=== PATIENT | male | born 1950 | race Caucasian/White ===

== ENCOUNTER 2019-01-09 08:32 | Day surgery (SDC) | payer OTHER, MEDICARE | END 2019-01-09 11:46 | disposition home or self-care (01) | LOC: JASU-ENDO 08:32 ==

== ENCOUNTER 2019-10-02 23:02 | Emergency (ER) | payer OTHER ==
[2019-10-02 23:37] VITALS: BMI 20.9
--- NOTE | 2019-10-02 23:45 | PDOC ---
Attending Attestation - Resident Resident Name: WilderShaun - ED Attending Attestation I have performed the following: I have examined & evaluated the patient, The case was reviewed & discussed with the resident, I agree w/resident's findings & plan - HPI HPI: 10/03/19 02:40 see resident hpi - Physicial Exam PE: 10/03/19 02:40 see resident exam - Critical Care Time Total Critical Care Time: 70 Critical Care Statement: The care of this patient involved high complexity decision making to prevent further life threatening deterioration of the patient 's condition and/or to evaluate & treat vital organ system(s) failure or risk of failure. 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
--- NOTE | 2019-10-02 23:48 | PDOC ---
History of Present Illness - General Chief Complaint: Respiratory Stated Complaint: WEAKNESS/CONGESTION Time Seen by Provider: 10/02/19 23:42 - History of Present Illness Initial Comments: 10/02/19 23:46 68 yo M with h/o HTN, HLD, CEA, carotid stent, CAD, CABG, PVD who p/w dry non productive cough x 2 days. Patient reports paroxysms of dry non productive cough x 2-3 days waking patient up from sleep. States that symptom not improved with OTC "Robitussin, and Diphehydramine" that patient took 10/01/19 evening. Reports waking up 10/02/19 AM with slow moving, narrow gait, resolved slowly through the day. Patient denies JEAN-BAPTISTE, vision change, palpitations, wheezing, orthopena, leg swelling/pain, N/V, F,C, CP, SOB, urinary complaints, hematuria, BPR, abdominal pain, diarrhea, constipation, lightheadedness, weakness, sensory changes. PMHx: as noted above ROS: as noted SHx: Denies Etoh, IVDA, tobacco use Allergies: NKDA Past History - Past Medical History Allergies/Adverse Reactions: Allergies Allergy/AdvReac Type Severity Reaction Status Date / Time No Known Drug Allergies AdvReac Verified 10/02/19 23:34 Home Medications: Ambulatory Orders Aspirin Coated [Ecotrin -] 81 mg PO DAILY 12/11/13 Enalapril Maleate [Vasotec -] 10 mg PO BID 12/11/13 Metoprolol Tartrate [Lopressor -] 25 mg PO BID 12/11/13 Sitagliptin Phos/Metformin HCl [Janumet Xr 50-1,000 mg Tablet] 1 each PO BID 12/11/13 Atorvastatin Ca [Lipitor] 40 mg PO HS 01/01/19 Glimepiride 4 mg PO BID 01/01/19 Anemia: Yes Cancer: No Cardiac Disorders: Yes (CAD, 1988;CABG 2 VESSELS 05/11/2013) CVA: No COPD: No Dementia: No Diabetes: Yes (NIDDM) HTN: Yes Hypercholesterolemia: Yes Seizures: No - Surgical History Cardiac Surgery: Yes (CABG) - Psycho Social/Smoking Cessation Hx Smoking History: Never smoked Have you smoked in the past 12 months: No If you are a former smoker, when did you quit?: 25 YEARS AGO Hx Alcohol Use: No Drug/Substance Use Hx: No Substance Use Type: None Hx Substance Use Treatment: No Review of Systems - Review of Systems Comments:: 10/02/19 23:47 GENERAL/CONSTITUTIONAL: No fever or chills. No weakness. HEAD, EYES, EARS, NOSE AND THROAT: No change in vision. No ear pain or discharge. No sore throat. CARDIOVASCULAR: No chest pain or shortness of breath RESPIRATORY: + cough. No wheezing, or hemoptysis. GASTROINTESTINAL: No nausea, vomiting, diarrhea or constipation. GENITOURINARY: No dysuria, frequency, or change in urination. MUSCULOSKELETAL: No joint or muscle swelling or pain. No neck or back pain. SKIN: No rash NEUROLOGIC: No headache, vertigo, loss of consciousness, or change in strength/sensation. ENDOCRINE: No increased thirst. No abnormal weight change HEMATOLOGIC/LYMPHATIC: No anemia, easy bleeding, or history of blood clots. ALLERGIC/IMMUNOLOGIC: No hives or skin allergy. *Physical Exam - Vital Signs Last Vital Signs Temp Pulse Resp BP Pulse Ox 99.3 F 88 19 120/61 97 10/02/19 23:05 10/02/19 23:05 10/02/19 23:05 10/02/19 23:05 10/02/19 23:05 - Physical Exam 10/02/19 23:47 GENERAL: Awake, alert, and fully oriented, in no acute distress HEAD: No signs of trauma, normocephalic, atraumatic EYES: PERRLA, EOMI, sclera anicteric, conjunctiva clear ENT: Auricles normal inspection, hearing grossly normal, nares patent, oropharynx clear without exudates. Moist mucosa NECK: Normal ROM, supple, no lymphadenopathy, JVD, or masses LUNGS: No distress, speaks full sentences, clear to auscultation bilaterally HEART: Regular rate and rhythm, normal S1 and S2, no murmurs, rubs or gallops, peripheral pulses normal and equal bilaterally. ABDOMEN: Soft, nontender, normoactive bowel sounds. No guarding, no rebound. No masses EXTREMITIES : Normal inspection, Normal range of motion, no edema. No clubbing or cyanosis NEUROLOGICAL: Cranial nerves II through XII grossly intact. Normal speech, normal gait, no focal sensorimotor deficits SKIN: Warm, Dry, normal turgor, no rashes or lesions noted ED Treatment Course - LABORATORY CBC & Chemistry Diagram: 10/03/19 00:12 10/03/19 00:12 Medical Decision Making - Medical Decision Making 10/03/19 00:11 68 yo M with h/o HTN, HLD, CEA, carotid stent, CAD, CABG, PVD who p/w dry non productive cough x 2 days. Cough wakes patient up from sleep. Vitals wnl, AF, A &Ox3. Physical exam unremarkable. Denies JEAN-BAPTISTE, vision change, palpitations, wheezing, orthopena, leg swelling/pain, N/V, F,C, CP, SOB, urinary complaints, hematuria, BPR, abdominal pain, diarrhea, constipation, lightheadedness, weakness, sensory changes. Will consider viral URI, PNA, asthma/COPD. Will reassess. ED Course: 10/03/19 00:15 EKG: STD V4-V5, TWI V4, NSR with absent DELPHINE, STD. Nml interval duration and axis. Nml R wave progression. Absent Q waves. Not seen on prior EKG 01-17-2015. 10/03/19 01:14 Laboratory Tests 10/03/19 10/03/19 10/03/19 00:12 00:12 00:12 WBC 6.3 Hgb 13.3 Hct 41.5 Plt Count 132 L Sodium 131 L Potassium 4.6 BUN 14.8 Creatinine 0.8 Troponin I 1.25 H* B-Natriuretic Peptide 1870.2 H 10/03/19 01:44 Repeat EKG unchanged from prior: STD V4-V5, TWI V4, NSR with absent DELPHINE, STD. Nml interval duration and axis. Nml R wave progression. Absent Q waves. Not seen on prior EKG 01-17-2015. 10/03/19 02:02 Repeat trop 1.31 10/03/19 02:06 Patient to be transferred d/t worsening PND, uptredning troponins, Lateral EKG changes. 10/03/19 02:[address] Kathie Thompson. Recommends Plavix, Heparin 5000, 80 mg Atorvastatin 80 PO, Lopressor 25 mg PO. Will be admit to ccu bed 8. Patient consents to tx. Discharge - Discharge Information Problems reviewed: Yes Clinical Impression/Diagnosis: Cough Condition: Stable Disposition: TRANSFER ACUTE CARE/OTHER HOSP - Admission No - Follow up/Referral Referrals: Juliana Sen MD [Primary Care Provider] - - Patient Discharge Instructions Patient Printed Discharge Instructions: DI for Cough -- Adult Additional Instructions: Please return to the emergency department with any new or worsening symptoms or concerns. Please follow up with your primary care physician within 72 hours. - Post Discharge Activity
[2019-10-03 00:41] LABS: BASO % 0.4 % (0-2.0); HEMATOCRIT 41.5 % (35.4-49); HEMOGLOBIN 13.3 GM/dL (11.7-16.9); LYMPH % 8.7 % (8-40); MCH 23.4 pg (25.7-33.7); MCHC 32.1 g/dl (32.0-35.9); MEAN CELL VOLUME 72.8 fl (80-96); MEAN PLT VOLUME 9.9 fl (7.5-11.1); MONO % 11.6 % (3.8-10.2); NEUT % 79.3 % (42.8-82.8); PLATELET COUNT 132 K/MM3 (134-434); RDW 15.2 % (11.9-15.9); WHITE BLOOD COUNT 6.3 K/mm3 (4.0-10.0)
[2019-10-03 01:06] LABS: ALBUMIN 3.8 g/dl (3.4-5.0); BILIRUBIN,TOTAL 0.3 mg/dL (0.2-1); BLOOD UREA NITROGEN 14.8 mg/dL (7-18); CALCIUM 9.2 mg/dL (8.5-10.1); CREATININE 0.8 mg/dL (0.55-1.3); POTASSIUM 4.6 mmol/L (3.5-5.1); TOT PROT 7.4 g/dl (6.4-8.2)
[2019-10-03 01:10] LABS: N-TERMINAL BNP 1870.2 pg/ml (5-125)
[2019-10-03] MEDS ORDERED: ATORVASTATIN CA 80 MG TABLET (FP) PO ONE (02:37)
[2019-10-03] MEDS ORDERED: METOPROLOL TARTRATE 25 MG TABLET (FP) PO ONE (02:37)
[2019-10-03] MEDS ORDERED: CLOPIDOGREL BISULFATE 300 MG TABLET ONE (02:38)
[2019-10-03] MEDS ORDERED: CLOPIDOGREL BISULFATE 300 MG TABLET PO ONE (02:38)
[2019-10-03] MEDS ORDERED: HEPARIN NA (PORCINE) 5,000 UNITS/ML 1ML VIAL IVPUSH PRN ×2 (02:38)
[2019-10-03] MEDS ORDERED: METOPROLOL TARTRATE 25 MG TABLET (FP) ONE (02:38)
[2019-10-03] MEDS ORDERED: HEPARIN INFUSION - 25,000 UNITS/500 ML INFUS.BAG IVPB ONE (02:39)
[2019-10-03] MEDS ORDERED: ATORVASTATIN CA 40 MG TABLET (FP) ONE (02:40)
[2019-10-03] MEDS ORDERED: HEPARIN NA (PORCINE) 5,000 UNITS/ML 1ML VIAL ONE (02:42)
[2019-10-03] MEDS ORDERED: HEPARIN - 25,000 UNIT in SODIUM CHLORIDE 495 ML IV SCH (02:45)
[2019-10-03 02:52] VITALS: PULSE 93
[2019-10-03 03:19] VITALS: BP 120/56; TEMP 98.4
[2019-10-03 04:10] LABS: INR 1.04 (0.83-1.09); PROTHROMBIN TIME (PATIENT) 12.3 SEC (9.7-13.0)
--- NOTE | 2019-10-03 08:42 | EKG ---
Test Reason : Blood Pressure : / mmHG Vent. Rate : 097 BPM Atrial Rate : 097 BPM P-R Int : 146 ms QRS Dur : 100 ms QT Int : 386 ms P-R-T Axes : 068 -29 091 degrees QTc Int : 490 ms POOR DATA QUALITY, INTERPRETATION MAY BE ADVERSELY AFFECTED NORMAL SINUS RHYTHM NONSPECIFIC ST AND T WAVE ABNORMALITY ABNORMAL ECG NO PREVIOUS ECGS AVAILABLE Confirmed by MD KATHRYN, JOSE R ([id number]) on 10/03/2019 8:42:37 AM Referred By: Confirmed By:JOSE R PERALTA MD
--- NOTE | 2019-10-03 08:43 | EKG ---
Test Reason : Blood Pressure : / mmHG Vent. Rate : 084 BPM Atrial Rate : 084 BPM P-R Int : 154 ms QRS Dur : 102 ms QT Int : 394 ms P-R-T Axes : 066 -18 101 degrees QTc Int : 465 ms NORMAL SINUS RHYTHM POSSIBLE LEFT ATRIAL ENLARGEMENT SEPTAL INFARCT , AGE UNDETERMINED ABNORMAL ECG NO PREVIOUS ECGS AVAILABLE Confirmed by MD KATHRYN, JOSE R ([id number] on 10/03/2019 8:42:51 AM Referred By: Confirmed By:JOSE R PERALTA MD
== END 2019-10-03 03:10 | disposition short-term general hospital (02) ==
LOC: JER 23:02
PROC: 3E033GC Introduction of Other Therapeutic Substance into Peripheral Vein, Percutaneous Approach (ICD-10-PCS; principal; 2019-10-02)
DX: R05 Cough (principal); R06.09 Other forms of dyspnea; R94.31 Abnormal electrocardiogram [ECG] [EKG]; R74.8 Abnormal levels of other serum enzymes; I10 Essential (primary) hypertension; I25.810 Atherosclerosis of coronary artery bypass graft(s) without angina pectoris; Z95.1 Presence of aortocoronary bypass graft; E11.9 Type 2 diabetes mellitus without complications; Z79.84 Long term (current) use of oral hypoglycemic drugs; I73.9 Peripheral vascular disease, unspecified; E78.00 Pure hypercholesterolemia, unspecified; Z95.828 Presence of other vascular implants and grafts; Z87.891 Personal history of nicotine dependence
CPT/HCPCS: 36415; 71045-TC-FY; 80053; 82550; 83880; 84484; 85025; 85610; 85730; 93005; 93010; 99291; J1644

== ENCOUNTER 2021-05-27 07:51 | Observation (INO) | payer OTHER ==
[2021-05-27 08:34] VITALS: BMI 24.0
[2021-05-27] MEDS ORDERED: ONDANSETRON 4 MG/2 ML VIAL IVPUSH ONE (09:19)
[2021-05-27 09:20] LABS: EOS % 3.1 % (0-4.5); HEMATOCRIT 33.2 % (35.4-49); HEMOGLOBIN 10.9 GM/dL (11.7-16.9); LYMPH % 18.5 % (8-40); MCH 23.3 pg (25.7-33.7); MCHC 32.8 g/dl (32.0-35.9); MEAN PLT VOLUME 9.3 fl (7.5-11.1); MONO % 7.5 % (3.8-10.2); NEUT % 69.9 % (42.8-82.8); PLATELET COUNT 109 10^3/uL (134-434); RBC 4.68 M/mm3 (4.00-5.60); RDW 15.9 % (11.9-15.9); WHITE BLOOD COUNT 4.7 K/mm3 (4.0-10.0)
[2021-05-27 09:26] LABS: INR 1.15 (0.83-1.09); PROTHROMBIN TIME (PATIENT) 12.9 SEC (9.7-13.0)
[2021-05-27 09:29] LABS: ACTIVATED PTT 30.8 SECONDS (25.2-36.5)
[2021-05-27] MEDS ORDERED: SODIUM CHLORIDE 0.9% 500 ML INFUS.BAG IV ONE (09:31)
[2021-05-27] MEDS ORDERED: ONDANSETRON 4 MG/2 ML VIAL ONE (09:32)
[2021-05-27 09:42] LABS: CHLORIDE 107 mmol/L (98-107); SODIUM 140 mmol/L (136-145)
[2021-05-27 09:44] LABS: CALCIUM 8.6 mg/dL (8.5-10.1)
[2021-05-27 09:45] LABS: ALBUMIN 3.2 g/dl (3.4-5.0); ANION GAP 8 MMOL/L (8-16); BLOOD UREA NITROGEN 11.6 mg/dL (7-18); CO2 24 mmol/L (21-32); GLUCOSE,RANDOM 96 mg/dL (74-106)
[2021-05-27 09:48] LABS: CREATININE 0.7 mg/dL (0.55-1.3); SGOT/AST 13 U/L (15-37); SGPT/ALT 10 U/L (13-61)
[2021-05-27 09:50] LABS: BILIRUBIN,TOTAL 0.4 mg/dL (0.2-1); TOT PROT 6.8 g/dl (6.4-8.2)
[2021-05-27 09:51] LABS: ALK PHOS 57 U/L (45-117)
[2021-05-27 11:16] LABS: LIPASE 121 U/L (73-393)
[2021-05-27] MEDS ORDERED: ASPIRIN COATED 81 MG TABLET.EC ONE (12:07)
[2021-05-27] MEDS ORDERED: metoPROLOL SUCCINATE 25 MG TAB.SR.24H (FP) PO ONE (13:05)
[2021-05-27] MEDS ORDERED: ENALAPRIL MALEATE 10 MG TABLET PO ONE (13:15)
[2021-05-27] MEDS: ASPIRIN COATED 81 MG TABLET.EC PO SCH (14:22)
[2021-05-27] MEDS: INSULIN SLIDING SCALE (NOVOLOG) 1 VIAL SQ SCH (16:35)
[2021-05-27] MEDS ORDERED: PT OWN MED DRAWER 7, Y5N ONE ×2 (16:37→19:09)
[2021-05-27] MEDS: GLIMEPIRIDE 4 MG TABLET PO SCH (18:04)
[2021-05-27] MEDS: ATORVASTATIN CA 40 MG TABLET (FP) PO SCH (21:30)
[2021-05-27] MEDS: HEPARIN NA (PORCINE) 5,000 UNITS/ML 1ML VIAL SQ SCH (21:30)
[2021-05-27] MEDS: ENALAPRIL MALEATE 10 MG TABLET PO SCH (21:30)
[2021-05-27] MEDS ORDERED: METOPROLOL TARTRATE 25 MG TABLET (FP) PO SCH (22:00)
[2021-05-28] MEDS: GLIMEPIRIDE 4 MG TABLET PO SCH ×2 (06:33→17:30)
[2021-05-28] MEDS: INSULIN SLIDING SCALE (NOVOLOG) 1 VIAL SQ SCH ×3 (06:34→17:37)
[2021-05-28] MEDS: ENALAPRIL MALEATE 10 MG TABLET PO SCH ×2 (09:25→21:17)
[2021-05-28] MEDS: METOPROLOL TARTRATE 25 MG TABLET (FP) PO SCH ×3 (09:27→21:16)
[2021-05-28] MEDS: ASPIRIN COATED 81 MG TABLET.EC PO SCH (09:27)
[2021-05-28] MEDS: HEPARIN NA (PORCINE) 5,000 UNITS/ML 1ML VIAL SQ SCH ×2 (09:28→21:16)
[2021-05-28] MEDS ORDERED: ASPIRIN COATED 81 MG TABLET.EC PO SCH (10:00)
[2021-05-28] MEDS ORDERED: INSULIN (NOVOLOG) ASPART 100 UNITS/ML 10ML VIAL ONE (11:42)
[2021-05-28] MEDS ORDERED: PT OWN MED DRAWER 7, Y5N ONE (16:50)
[2021-05-28] MEDS: ATORVASTATIN CA 40 MG TABLET (FP) PO SCH (21:16)
[2021-05-28 22:43] LABS: PH,URINE 7.5 (5.0-8.0); URINE APPEARANCE CLEAR; URINE BILIRUBIN NEGATIVE (NEGATIVE); URINE COLOR YELLOW; URINE GLUCOSE (UA) NEGATIVE (NEGATIVE); URINE KETONE NEGATIVE (NEGATIVE); URINE LEUK ESTERASE NEGATIVE (NEGATIVE); URINE NITRITE NEGATIVE (NEGATIVE); URINE PROTEIN NEGATIVE (NEGATIVE); URINE UROBILINOGEN 0.2 mg/dL (0.2-1.0)
[2021-05-29] MEDS ORDERED: PT OWN MED DRAWER 7, Y5N ONE ×2 (05:36→07:58)
[2021-05-29] MEDS: INSULIN SLIDING SCALE (NOVOLOG) 1 VIAL SQ SCH ×2 (06:40→12:38)
[2021-05-29 08:58] VITALS: BP 159/68; PULSE 76; TEMP 97.8
[2021-05-29] MEDS: GLIMEPIRIDE 4 MG TABLET PO SCH (09:03)
[2021-05-29] MEDS: METOPROLOL TARTRATE 25 MG TABLET (FP) PO SCH (09:48)
[2021-05-29] MEDS: ENALAPRIL MALEATE 10 MG TABLET PO SCH (09:48)
[2021-05-29] MEDS: ASPIRIN COATED 81 MG TABLET.EC PO SCH (09:48)
[2021-05-29] MEDS: HEPARIN NA (PORCINE) 5,000 UNITS/ML 1ML VIAL SQ SCH (09:48)
[2021-05-29] MEDS ORDERED: INSULIN (NOVOLOG) ASPART 100 UNITS/ML 10ML VIAL ONE (12:34)
== END 2021-05-29 18:08 | disposition home or self-care (01) ==
LOC: JER 07:51 → JERBED 09:55 → INTOOBSV 09:55 → J4W 13:09
PROVIDERS: ADMIT Internal Medicine; ATTEND Internal Medicine
PROC: 3E013VG Introduction of Insulin into Subcutaneous Tissue, Percutaneous Approach (ICD-10-PCS; principal; 2021-05-27)
PROC: 3E023GC Introduction of Other Therapeutic Substance into Muscle, Percutaneous Approach (ICD-10-PCS; 2021-05-27)
PROC: 3E033GC Introduction of Other Therapeutic Substance into Peripheral Vein, Percutaneous Approach (ICD-10-PCS; 2021-05-27)
PROC: 3E0337Z Introduction of Electrolytic and Water Balance Substance into Peripheral Vein, Percutaneous Approach (ICD-10-PCS; 2021-05-27)
DX: R42 Dizziness and giddiness (principal); G25.2 Other specified forms of tremor; I10 Essential (primary) hypertension; I24.9 Acute ischemic heart disease, unspecified; E78.5 Hyperlipidemia, unspecified; Z95.5 Presence of coronary angioplasty implant and graft; Z95.1 Presence of aortocoronary bypass graft; I73.9 Peripheral vascular disease, unspecified
CPT/HCPCS: 36415; 70450-TC; 70551-TC; 71045-TC-FY; 80053; 81003; 82550; 82962; 83036; 83690; 84484; 85025; 85610; 85730; 87086; 93005; 93010; 93306-TC; 93880-TC; 96372; 96374; 97116-GP; 97161-GP; 99285-25; C9803; G0378; J1644; U0003; U0005

== ENCOUNTER 2021-11-26 06:16 | Observation (INO) | payer OTHER ==
[2021-11-26 06:41] VITALS: BMI 23.6
[2021-11-26 08:45] LABS: INR 1.07 (0.83-1.09); PROTHROMBIN TIME (PATIENT) 12.3 SEC (9.7-13.0)
[2021-11-26 08:48] LABS: ACTIVATED PTT 32.9 SECONDS (25.2-36.5); BASO % 0.7 % (0-2.0); EOS % 1.7 % (0-4.5); HEMATOCRIT 35.3 % (35.4-49); HEMOGLOBIN 11.5 GM/dL (11.7-16.9); LYMPH % 19.7 % (8-40); MCH 23.2 pg (25.7-33.7); MCHC 32.6 g/dl (32.0-35.9); MEAN CELL VOLUME 71.1 fl (80-96); MEAN PLT VOLUME 9.3 fl (7.5-11.1); MONO % 9.8 % (3.8-10.2); NEUT % 68.1 % (42.8-82.8); PLATELET COUNT 148 10^3/uL (134-434); RBC 4.96 M/mm3 (4.00-5.60); RDW 14.4 % (11.9-15.9); WHITE BLOOD COUNT 6.1 K/mm3 (4.0-10.0)
[2021-11-26 08:57] LABS: ALBUMIN 3.7 g/dl (3.4-5.0); BLOOD UREA NITROGEN 17.4 mg/dL (7-18); MAGNESIUM 1.8 mg/dL (1.8-2.4)
[2021-11-26 09:00] LABS: CREATININE 0.7 mg/dL (0.55-1.3)
[2021-11-26 09:02] LABS: BILIRUBIN,TOTAL 0.3 mg/dL (0.2-1); TOT PROT 7.1 g/dl (6.4-8.2)
[2021-11-26 10:04] LABS: URINE APPEARANCE CLEAR; URINE BILIRUBIN NEGATIVE (NEGATIVE); URINE COLOR YELLOW; URINE GLUCOSE (UA) NEGATIVE (NEGATIVE); URINE KETONE NEGATIVE (NEGATIVE); URINE LEUK ESTERASE NEGATIVE (NEGATIVE); URINE NITRITE NEGATIVE (NEGATIVE); URINE PROTEIN NEGATIVE (NEGATIVE); URINE UROBILINOGEN 0.2 mg/dL (0.2-1.0)
[2021-11-26] MEDS ORDERED: INSULIN (NOVOLOG) ASPART 100 UNITS/ML 10ML VIAL SQ SCH (11:00)
[2021-11-26] MEDS: INSULIN (NOVOLOG) ASPART 100 UNITS/ML 10ML VIAL SQ SCH ×2 (13:00→17:59)
[2021-11-26] MEDS ORDERED: CARBIDOPA/LEVODOPA 25/100 TABLET (FP) ONE (15:08)
[2021-11-26] MEDS: CARBIDOPA/LEVODOPA 25/100 TABLET (FP) PO SCH ×2 (15:17→22:05)
[2021-11-26] MEDS ORDERED: GLIMEPIRIDE 4 MG TABLET PO SCH (16:30)
[2021-11-26] MEDS ORDERED: METOPROLOL TARTRATE 25 MG TABLET (FP) PO SCH (22:00)
[2021-11-26] MEDS: ATORVASTATIN CA 40 MG TABLET (FP) PO SCH (22:05)
[2021-11-26] MEDS: PRIMIDONE 50 MG TABLET PO SCH (22:05)
[2021-11-26] MEDS: ENALAPRIL MALEATE 10 MG TABLET PO SCH (22:05)
[2021-11-27] MEDS: CARBIDOPA/LEVODOPA 25/100 TABLET (FP) PO SCH ×3 (06:27→21:14)
[2021-11-27] MEDS: INSULIN (NOVOLOG) ASPART 100 UNITS/ML 10ML VIAL SQ SCH ×3 (06:50→17:10)
[2021-11-27 08:12] LABS: BASO % 0.5 % (0-2.0); EOS % 1.5 % (0-4.5); HEMATOCRIT 35.1 % (35.4-49); HEMOGLOBIN 11.1 GM/dL (11.7-16.9); LYMPH % 21.1 % (8-40); MCH 22.8 pg (25.7-33.7); MCHC 31.7 g/dl (32.0-35.9); MEAN CELL VOLUME 71.7 fl (80-96); MEAN PLT VOLUME 9.3 fl (7.5-11.1); MONO % 8.9 % (3.8-10.2); PLATELET COUNT 144 10^3/uL (134-434); RBC 4.89 M/mm3 (4.00-5.60); RDW 14.2 % (11.9-15.9); WHITE BLOOD COUNT 6.1 K/mm3 (4.0-10.0)
[2021-11-27 08:26] LABS: BLOOD UREA NITROGEN 18.7 mg/dL (7-18); CALCIUM 8.7 mg/dL (8.5-10.1)
[2021-11-27 08:27] LABS: ALBUMIN 3.4 g/dl (3.4-5.0)
[2021-11-27 08:29] LABS: CREATININE 0.8 mg/dL (0.55-1.3)
[2021-11-27 08:30] LABS: BILIRUBIN,TOTAL 0.4 mg/dL (0.2-1); TOT PROT 6.8 g/dl (6.4-8.2)
[2021-11-27] MEDS: EZETIMIBE 10 MG TABLET (FP) PO SCH (09:14)
[2021-11-27] MEDS: NIFEdipine E.R 60 MG TABLET PO SCH (09:14)
[2021-11-27] MEDS: NEBIVOLOL 10 MG TABLET (FP) PO SCH (09:14)
[2021-11-27] MEDS: CLOPIDOGREL BISULFATE 75 MG TABLET (FP) PO SCH (09:14)
[2021-11-27] MEDS: ENALAPRIL MALEATE 10 MG TABLET PO SCH ×2 (09:14→21:14)
[2021-11-27] MEDS: ASPIRIN COATED 81 MG TABLET.EC PO SCH (09:14)
[2021-11-27] MEDS: ATORVASTATIN CA 40 MG TABLET (FP) PO SCH (21:14)
[2021-11-27] MEDS: PRIMIDONE 50 MG TABLET PO SCH (21:14)
[2021-11-28] MEDS: INSULIN (NOVOLOG) ASPART 100 UNITS/ML 10ML VIAL SQ SCH ×2 (06:15→11:36)
[2021-11-28] MEDS: CARBIDOPA/LEVODOPA 25/100 TABLET (FP) PO SCH (06:15)
[2021-11-28] MEDS ORDERED: sitaGLIPtin PHOSPHATE 50 MG TABLET PO SCH (08:15)
[2021-11-28] MEDS: ASPIRIN COATED 81 MG TABLET.EC PO SCH (09:24)
[2021-11-28] MEDS: ENALAPRIL MALEATE 10 MG TABLET PO SCH (09:24)
[2021-11-28] MEDS: EZETIMIBE 10 MG TABLET (FP) PO SCH (09:24)
[2021-11-28] MEDS: NIFEdipine E.R 60 MG TABLET PO SCH (09:24)
[2021-11-28] MEDS: CLOPIDOGREL BISULFATE 75 MG TABLET (FP) PO SCH (09:25)
[2021-11-28] MEDS: NEBIVOLOL 10 MG TABLET (FP) PO SCH (09:25)
[2021-11-28 12:39] VITALS: BP 133/53; PULSE 71; TEMP 98.2
== END 2021-11-28 14:10 | disposition home or self-care (01) ==
LOC: JER 06:16 → JERBED 10:38 → J4W 16:09
PROVIDERS: ADMIT Internal Medicine; ATTEND Internal Medicine
PROC: 3E013VG Introduction of Insulin into Subcutaneous Tissue, Percutaneous Approach (ICD-10-PCS; principal; 2021-11-26)
DX: G20 Parkinson's disease (principal); I25.10 Atherosclerotic heart disease of native coronary artery without angina pectoris; I77.9 Disorder of arteries and arterioles, unspecified; Z95.1 Presence of aortocoronary bypass graft; R26.81 Unsteadiness on feet; R42 Dizziness and giddiness; E78.5 Hyperlipidemia, unspecified; I11.9 Hypertensive heart disease without heart failure; I73.9 Peripheral vascular disease, unspecified; I65.29 Occlusion and stenosis of unspecified carotid artery
CPT/HCPCS: 36415; 70450-TC; 70551-TC; 80053; 80061; 81003; 82962; 83036; 83735; 84439; 84443; 84484; 85025; 85610; 85730; 87086; 93005; 93010; 93306-TC; 93880-TC; 96372; 97116-GP; 97161-GP; 99285-25; C9803-CS; G0378; U0003; U0005

== ENCOUNTER 2022-01-07 21:52 | Inpatient (IN) | payer OTHER ==
[2022-01-07 22:14] VITALS: BMI 24.0
[2022-01-07 23:53] LABS: VENOUS BASE EXCESS -4.3 mmol/L (-2-2); VENOUS O2 SATURATION 67.1 % (70-80); VENOUS PCO2 40.9 mmHg (38-52); VENOUS PH 7.334 (7.310-7.410)
[2022-01-08] MEDS ORDERED: CEFTRIAXONE 1 GM in DEXTROSE 5%-WATER - 100 ML IVPB ONE (00:02)
[2022-01-08] MEDS ORDERED: AZITHROMYCIN IVPB 500 MG in DEXTROSE 5%-WATER - 250 ML IVPB ONE (00:02)
[2022-01-08 00:04] LABS: BASO % 0.7 % (0-2.0); EOS % 0.3 % (0-4.5); HEMATOCRIT 33.7 % (35.4-49); HEMOGLOBIN 10.7 GM/dL (11.7-16.9); MCH 22.4 pg (25.7-33.7); MCHC 31.9 g/dl (32.0-35.9); MEAN CELL VOLUME 70.1 fl (80-96); MEAN PLT VOLUME 10.1 fl (7.5-11.1); MONO % 4.7 % (3.8-10.2); NEUT % 89.3 % (42.8-82.8); PLATELET COUNT 180 10^3/uL (134-434); RBC 4.81 M/mm3 (4.00-5.60); RDW 15.7 % (11.9-15.9)
[2022-01-08] MEDS ORDERED: CEFTRIAXONE 1 GM/50 ML BAG ONE (00:07)
[2022-01-08 00:15] LABS: CHLORIDE 103 mmol/L (98-107); SODIUM 136 mmol/L (136-145)
[2022-01-08 00:18] LABS: ALBUMIN 3.6 g/dl (3.4-5.0); ANION GAP 9 MMOL/L (8-16); BLOOD UREA NITROGEN 19.5 mg/dL (7-18); CO2 24 mmol/L (21-32); GLUCOSE,RANDOM 251 mg/dL (74-106)
[2022-01-08 00:21] LABS: SGOT/AST 21 U/L (15-37); SGPT/ALT 10 U/L (13-61)
[2022-01-08 00:23] LABS: BILIRUBIN,TOTAL 0.3 mg/dL (0.2-1); TOT PROT 7.3 g/dl (6.4-8.2)
[2022-01-08 00:24] LABS: ALK PHOS 78 U/L (45-117)
[2022-01-08 00:30] LABS: INR 1.15 (0.83-1.09); PROTHROMBIN TIME (PATIENT) 13.3 SEC (9.7-13.0)
[2022-01-08] MEDS ORDERED: ASPIRIN 81 MG CHEWABLE TABLETS PO ONE (00:48)
[2022-01-08] MEDS ORDERED: ASPIRIN 81 MG CHEWABLE TABLETS ONE (01:07)
[2022-01-08] MEDS ORDERED: AZITHROMYCIN IVPB 500 MG/250 ML BAG IVPB ONE (01:17)
[2022-01-08 03:21] LABS: URINE APPEARANCE CLEAR; URINE BILIRUBIN NEGATIVE (NEGATIVE); URINE COLOR YELLOW; URINE GLUCOSE (UA) TRACE (NEGATIVE); URINE KETONE NEGATIVE (NEGATIVE); URINE LEUK ESTERASE NEGATIVE (NEGATIVE); URINE NITRITE NEGATIVE (NEGATIVE); URINE PROTEIN NEGATIVE (NEGATIVE); URINE UROBILINOGEN 0.2 mg/dL (0.2-1.0)
[2022-01-08] MEDS ORDERED: CARBIDOPA/LEVODOPA 25/100 TABLET (FP) PO SCH (07:15)
[2022-01-08 08:24] LABS: CALCIUM 8.7 mg/dL (8.5-10.1)
[2022-01-08 08:25] LABS: ALBUMIN 3.1 g/dl (3.4-5.0); BLOOD UREA NITROGEN 18.3 mg/dL (7-18); MAGNESIUM 1.8 mg/dL (1.8-2.4)
[2022-01-08 08:28] LABS: CREATININE 0.8 mg/dL (0.55-1.3)
[2022-01-08 08:29] LABS: TOT PROT 6.6 g/dl (6.4-8.2)
[2022-01-08 08:30] LABS: BILIRUBIN,TOTAL 0.3 mg/dL (0.2-1)
[2022-01-08 08:34] LABS: BASO % 0.3 % (0-2.0); EOS % 0.2 % (0-4.5); HEMATOCRIT 32.9 % (35.4-49); HEMOGLOBIN 10.4 GM/dL (11.7-16.9); LYMPH % 9.2 % (8-40); MCH 22.3 pg (25.7-33.7); MCHC 31.7 g/dl (32.0-35.9); MEAN CELL VOLUME 70.2 fl (80-96); MEAN PLT VOLUME 9.6 fl (7.5-11.1); MONO % 7.1 % (3.8-10.2); NEUT % 83.2 % (42.8-82.8); PLATELET COUNT 163 10^3/uL (134-434); RBC 4.69 M/mm3 (4.00-5.60); RDW 15.5 % (11.9-15.9); WHITE BLOOD COUNT 8.7 K/mm3 (4.0-10.0)
[2022-01-08] MEDS ORDERED: PIPERACILLIN/TAZOB 4.5 GM 4.5 GM/100 ML BAG IVPB ONE ×2 (09:10→14:51)
[2022-01-08] MEDS: PIPERACILLIN/TAZOB 4.5 GM 4.5 GM in DEXTROSE 5%-WATER 100 ML IVPB SCH ×2 (09:17→15:01)
[2022-01-08] MEDS ORDERED: VANCOMYCIN/WATER FOR INJ (PEG) 1,000 MG/200 ML BAG IVPB SCH (10:00)
[2022-01-08] MEDS ORDERED: NEBIVOLOL 10 MG TABLET (FP) PO SCH (10:30)
[2022-01-08] MEDS ORDERED: ENALAPRIL MALEATE 5 MG TABLET ONE (11:11)
[2022-01-08] MEDS ORDERED: NIFEdipine E.R 60 MG TABLET ONE (11:12)
[2022-01-08] MEDS ORDERED: CLOPIDOGREL BISULFATE 75 MG TABLET (FP) ONE (11:12)
[2022-01-08] MEDS ORDERED: ASPIRIN COATED 81 MG TABLET.EC ONE (11:12)
[2022-01-08] MEDS ORDERED: VANCOMYCIN 1 GRAM (PRE-DOCKED) 1,000 MG/250 ML BAG IVPB ONE (11:13)
[2022-01-08] MEDS: NEBIVOLOL 5 MG TABLET (FP) PO SCH (11:33)
[2022-01-08] MEDS: ASPIRIN COATED 81 MG TABLET.EC PO SCH (11:33)
[2022-01-08] MEDS: CLOPIDOGREL BISULFATE 75 MG TABLET (FP) PO SCH (11:34)
[2022-01-08] MEDS: NIFEdipine E.R 60 MG TABLET PO SCH (11:34)
[2022-01-08] MEDS: ENALAPRIL MALEATE 10 MG TABLET PO SCH ×2 (11:34→21:54)
[2022-01-08] MEDS ORDERED: CARBIDOPA/LEVODOPA 25/100 TABLET (FP) ONE (12:08)
[2022-01-08] MEDS: CARBIDOPA/LEVODOPA 25/100 TABLET (FP) PO SCH ×2 (12:11→17:01)
[2022-01-08] MEDS ORDERED: ALBUTEROL SO4 2.5/IPRATROPIUM 0.5 INH SOL 3 ML VIAL.NEB. NEB ONE (12:59)
[2022-01-08] MEDS ORDERED: ALBUTEROL SO4 2.5/IPRATROPIUM 0.5 INH SOL 3 ML VIAL.NEB. NEB PRN ×2 (13:05→13:34)
[2022-01-08] MEDS: INSULIN SLIDING SCALE (NOVOLOG) 1 VIAL SQ SCH ×3 (13:19→22:14)
[2022-01-08] MEDS ORDERED: HEPARIN NA (PORCINE) 5,000 UNITS/ML 1ML VIAL IVPUSH PRN ×2 (13:48)
[2022-01-08] MEDS ORDERED: HEPARIN INFUSION - 25,000 UNITS/500 ML INFUS.BAG IVPB ONE (14:18)
[2022-01-08] MEDS: HEPARIN - 25,000 UNIT in SODIUM CHLORIDE 495 ML IV SCH (15:28)
[2022-01-08] MEDS ORDERED: PIPERACILLIN/TAZOBACTAM 3.375 GM VIAL IVPB ONE (17:00)
[2022-01-08] MEDS ORDERED: DEXTROSE 5%-WATER - 50 ML IVPB ONE (17:00)
[2022-01-08] MEDS: PIPERACILLIN/TAZOB 3.375 GM 3.375 GM in DEXTROSE 5%-WATER - 50 ML IVPB SCH (17:39)
[2022-01-08] MEDS: PRIMIDONE 50 MG TABLET PO SCH (21:54)
[2022-01-08] MEDS: ATORVASTATIN CA 40 MG TABLET (FP) PO SCH (21:54)
[2022-01-09] MEDS ORDERED: PIPERACILLIN/TAZOBACTAM 3.375 GM VIAL IVPB ONE ×3 (00:59→16:40)
[2022-01-09] MEDS ORDERED: DEXTROSE 5%-WATER - 50 ML IVPB ONE ×3 (01:00→16:40)
[2022-01-09] MEDS: PIPERACILLIN/TAZOB 3.375 GM 3.375 GM in DEXTROSE 5%-WATER - 50 ML IVPB SCH ×3 (02:28→17:31)
[2022-01-09] MEDS: INSULIN SLIDING SCALE (NOVOLOG) 1 VIAL SQ SCH ×4 (06:00→22:24)
[2022-01-09] MEDS: CARBIDOPA/LEVODOPA 25/100 TABLET (FP) PO SCH ×3 (06:01→17:46)
[2022-01-09] MEDS ORDERED: PIPERACILLIN/TAZOB 4.5 GM 4.5 GM in DEXTROSE 5%-WATER 100 ML IVPB SCH (09:00)
[2022-01-09] MEDS: ENALAPRIL MALEATE 10 MG TABLET PO SCH ×2 (09:41→22:24)
[2022-01-09] MEDS: CLOPIDOGREL BISULFATE 75 MG TABLET (FP) PO SCH (09:41)
[2022-01-09] MEDS: NEBIVOLOL 5 MG TABLET (FP) PO SCH (09:41)
[2022-01-09] MEDS: NIFEdipine E.R 60 MG TABLET PO SCH (09:41)
[2022-01-09] MEDS: ASPIRIN COATED 81 MG TABLET.EC PO SCH (09:41)
[2022-01-09] MEDS ORDERED: VANCOMYCIN/WATER FOR INJ (PEG) 1,000 MG/200 ML BAG IVPB SCH ×2 (10:00)
[2022-01-09] MEDS: HEPARIN - 25,000 UNIT in SODIUM CHLORIDE 495 ML IV SCH (16:30)
[2022-01-09] MEDS: ATORVASTATIN CA 40 MG TABLET (FP) PO SCH (22:24)
[2022-01-09] MEDS: PRIMIDONE 50 MG TABLET PO SCH (22:33)
[2022-01-10] MEDS ORDERED: PIPERACILLIN/TAZOBACTAM 3.375 GM VIAL IVPB ONE ×3 (01:25→15:37)
[2022-01-10] MEDS ORDERED: DEXTROSE 5%-WATER - 50 ML IVPB ONE ×3 (01:26→15:38)
[2022-01-10] MEDS: PIPERACILLIN/TAZOB 3.375 GM 3.375 GM in DEXTROSE 5%-WATER - 50 ML IVPB SCH ×3 (02:31→17:06)
[2022-01-10] MEDS: CARBIDOPA/LEVODOPA 25/100 TABLET (FP) PO SCH ×3 (06:18→16:54)
[2022-01-10 06:21] LABS: EOS % 1.7 % (0-4.5); HEMATOCRIT 28.6 % (35.4-49); HEMOGLOBIN 9.3 GM/dL (11.7-16.9); LYMPH % 16.2 % (8-40); MCH 22.5 pg (25.7-33.7); MCHC 32.3 g/dl (32.0-35.9); MEAN CELL VOLUME 69.4 fl (80-96); MEAN PLT VOLUME 9.7 fl (7.5-11.1); MONO % 7.8 % (3.8-10.2); NEUT % 73.3 % (42.8-82.8); PLATELET COUNT 156 10^3/uL (134-434); RBC 4.12 M/mm3 (4.00-5.60); WHITE BLOOD COUNT 7.3 K/mm3 (4.0-10.0)
[2022-01-10] MEDS: INSULIN SLIDING SCALE (NOVOLOG) 1 VIAL SQ SCH ×4 (06:21→21:45)
[2022-01-10 08:08] LABS: ALBUMIN 2.7 g/dl (3.4-5.0); BILIRUBIN,TOTAL 0.4 mg/dL (0.2-1); BLOOD UREA NITROGEN 14.2 mg/dL (7-18); CALCIUM 8.3 mg/dL (8.5-10.1); CREATININE 0.7 mg/dL (0.55-1.3); TOT PROT 5.8 g/dl (6.4-8.2)
[2022-01-10] MEDS: ASPIRIN COATED 81 MG TABLET.EC PO SCH (09:02)
[2022-01-10] MEDS: NIFEdipine E.R 60 MG TABLET PO SCH (09:02)
[2022-01-10] MEDS: ENALAPRIL MALEATE 10 MG TABLET PO SCH ×2 (09:02→21:42)
[2022-01-10] MEDS: CLOPIDOGREL BISULFATE 75 MG TABLET (FP) PO SCH (09:02)
[2022-01-10] MEDS: NEBIVOLOL 5 MG TABLET (FP) PO SCH (09:06)
[2022-01-10] MEDS: sitaGLIPtin PHOSPHATE 50 MG TABLET PO SCH (16:54)
[2022-01-10] MEDS: ATORVASTATIN CA 40 MG TABLET (FP) PO SCH (21:42)
[2022-01-10] MEDS: PRIMIDONE 50 MG TABLET PO SCH (21:42)
[2022-01-10] MEDS ORDERED: PATIENT'S OWN MEDICATION (NON-FORMULARY) (Sitagliptin Phos/Metformin Hcl [Janumet Xr 50-1, PO SCH (22:00)
[2022-01-10] MEDS ORDERED: CALCIUM CARBONATE 650 MG TABLET PO ONE (23:00)
[2022-01-11] MEDS ORDERED: DEXTROSE 5%-WATER - 50 ML IVPB ONE ×3 (03:04→17:34)
[2022-01-11] MEDS ORDERED: PIPERACILLIN/TAZOBACTAM 3.375 GM VIAL IVPB ONE ×3 (03:04→17:34)
[2022-01-11] MEDS: PIPERACILLIN/TAZOB 3.375 GM 3.375 GM in DEXTROSE 5%-WATER - 50 ML IVPB SCH ×3 (03:13→17:36)
[2022-01-11] MEDS ORDERED: FUROSEMIDE 40 MG/4 ML INJECTABLE VIAL ONE (04:27)
[2022-01-11] MEDS ORDERED: FUROSEMIDE 40 MG/4 ML INJECTABLE VIAL IVPUSH ONE (04:36)
[2022-01-11] MEDS ORDERED: ALBUTEROL SO4 2.5/IPRATROPIUM 0.5 INH SOL 3 ML VIAL.NEB. NEB ONE (05:02)
[2022-01-11] MEDS: sitaGLIPtin PHOSPHATE 50 MG TABLET PO SCH (06:35)
[2022-01-11] MEDS: CARBIDOPA/LEVODOPA 25/100 TABLET (FP) PO SCH ×3 (06:43→17:37)
[2022-01-11] MEDS: INSULIN SLIDING SCALE (NOVOLOG) 1 VIAL SQ SCH ×4 (06:43→21:05)
[2022-01-11 07:09] LABS: ARTERIAL BLD GAS O2 SATURATION 93.9 % (95-98); ARTERIAL BLOOD GAS PO2 71.8 mmHg (80-100); ARTERIAL BLOOD GAS pH 7.354 (7.350-7.450)
[2022-01-11 07:11] LABS: ALLENS TEST POSITIVE
[2022-01-11] MEDS: ALBUTEROL SO4 2.5/IPRATROPIUM 0.5 INH SOL 3 ML VIAL.NEB. NEB SCH ×4 (07:23→20:38)
[2022-01-11 07:51] LABS: HEMATOCRIT 29.7 % (35.4-49); HEMOGLOBIN 9.4 GM/dL (11.7-16.9); MCHC 31.6 g/dl (32.0-35.9); MEAN CELL VOLUME 69.5 fl (80-96); MEAN PLT VOLUME 9.7 fl (7.5-11.1); PLATELET COUNT 177 10^3/uL (134-434); RBC 4.28 M/mm3 (4.00-5.60); RDW 15.5 % (11.9-15.9); WHITE BLOOD COUNT 12.6 K/mm3 (4.0-10.0)
[2022-01-11 08:03] LABS: CHLORIDE 100 mmol/L (98-107); SODIUM 135 mmol/L (136-145)
[2022-01-11 08:05] LABS: CALCIUM 8.7 mg/dL (8.5-10.1)
[2022-01-11 08:06] LABS: ALBUMIN 2.9 g/dl (3.4-5.0); ANION GAP 13 MMOL/L (8-16); BLOOD UREA NITROGEN 25.5 mg/dL (7-18); CO2 22 mmol/L (21-32); GLUCOSE,RANDOM 398 mg/dL (74-106)
[2022-01-11 08:08] LABS: SGPT/ALT 8 U/L (13-61)
[2022-01-11 08:09] LABS: CREATININE 1.2 mg/dL (0.55-1.3); SGOT/AST 48 U/L (15-37)
[2022-01-11 08:10] LABS: BILIRUBIN,TOTAL 0.5 mg/dL (0.2-1); TOT PROT 6.4 g/dl (6.4-8.2)
[2022-01-11 08:12] LABS: ALK PHOS 58 U/L (45-117)
[2022-01-11] MEDS ORDERED: INSULIN (LEVEMIR) 100 UNITS/ML UNITS SQ SCH ×2 (08:41→22:00)
[2022-01-11 09:03] LABS: IRON SERUM 19 ug/dL (50-175); TOTAL IRON BINDING CAPACITY 293 ug/dL (250-450)
[2022-01-11] MEDS ORDERED: POLYETHYLENE GLYCOL 3350 119 GM BTL PO SCH (10:00)
[2022-01-11] MEDS ORDERED: ENOXAPARIN NA (PORCINE) 40 MG/0.4 ML DISP.SYRIN SQ SCH (10:00)
[2022-01-11] MEDS: ASPIRIN COATED 81 MG TABLET.EC PO SCH (10:30)
[2022-01-11] MEDS: POLYETHYLENE GLYCOL (HEALTHYLAX) 3350 17 GM PACKET PO SCH (10:30)
[2022-01-11] MEDS: NIFEdipine E.R 60 MG TABLET PO SCH (10:30)
[2022-01-11] MEDS: CLOPIDOGREL BISULFATE 75 MG TABLET (FP) PO SCH (10:30)
[2022-01-11] MEDS: NEBIVOLOL 5 MG TABLET (FP) PO SCH (10:30)
[2022-01-11] MEDS: ENALAPRIL MALEATE 10 MG TABLET PO SCH ×2 (10:30→21:07)
[2022-01-11] MEDS: MUPIROCIN 2% TOPICAL OINTMENT FOR DECOLONIZATION NS SCH ×2 (10:35→21:07)
[2022-01-11] MEDS ORDERED: DOXYCYCLINE INJECTION 100 MG in DEXTROSE 5%-WATER 100 ML IVPB SCH (12:00)
[2022-01-11] MEDS ORDERED: DEXTROSE 5%-WATER 100 ML IVPB ONE ×2 (12:05→20:53)
[2022-01-11] MEDS ORDERED: DOXYCYCLINE HYCLATE 100 MG VIAL ONE ×2 (12:05→20:53)
[2022-01-11 12:25] LABS: ANISOCYTOSIS 3+; MACROCYTOSIS 0
[2022-01-11] MEDS ORDERED: HEPARIN NA (PORCINE) 5,000 UNITS/ML 1ML VIAL IVPUSH PRN (17:42)
[2022-01-11] MEDS ORDERED: HEPARIN NA (PORCINE) 5,000 UNITS/ML 1ML VIAL IVPUSH ONE (17:59)
[2022-01-11] MEDS: HEPARIN - 25,000 UNIT in SODIUM CHLORIDE 495 ML IV SCH (19:40)
[2022-01-11] MEDS: INSULIN (LEVEMIR) 100 UNITS/ML UNITS SQ SCH (21:06)
[2022-01-11] MEDS: DOXYCYCLINE INJECTION 100 MG in DEXTROSE 5%-WATER 100 ML IVPB SCH (21:07)
[2022-01-11] MEDS ORDERED: PRIMIDONE 50 MG TABLET PO SCH (22:00)
[2022-01-11] MEDS ORDERED: CHLORHEXIDINE GLUCONATE 4% CLEANSER FOR DECOLONIZATION TP SCH (22:00)
[2022-01-11] MEDS ORDERED: ATORVASTATIN CA 40 MG TABLET (FP) PO SCH (22:00)
[2022-01-12] MEDS: ALBUTEROL SO4 2.5/IPRATROPIUM 0.5 INH SOL 3 ML VIAL.NEB. NEB SCH ×5 (00:03→15:15)
[2022-01-12] MEDS ORDERED: PIPERACILLIN/TAZOBACTAM 3.375 GM VIAL IVPB ONE ×2 (01:26→09:42)
[2022-01-12] MEDS ORDERED: DEXTROSE 5%-WATER - 50 ML IVPB ONE ×2 (01:26→09:43)
[2022-01-12] MEDS: PIPERACILLIN/TAZOB 3.375 GM 3.375 GM in DEXTROSE 5%-WATER - 50 ML IVPB SCH ×2 (01:40→10:08)
[2022-01-12] MEDS: HEPARIN NA (PORCINE) 5,000 UNITS/ML 1ML VIAL IVPUSH PRN ×2 (02:19→14:01)
[2022-01-12] MEDS: CARBIDOPA/LEVODOPA 25/100 TABLET (FP) PO SCH ×2 (06:18→12:00)
[2022-01-12] MEDS: INSULIN SLIDING SCALE (NOVOLOG) 1 VIAL SQ SCH ×2 (06:19→12:02)
[2022-01-12] MEDS: INSULIN (LEVEMIR) 100 UNITS/ML UNITS SQ SCH (06:19)
[2022-01-12 07:21] LABS: HEMATOCRIT 30.2 % (35.4-49); HEMOGLOBIN 9.7 GM/dL (11.7-16.9); MEAN CELL VOLUME 68.8 fl (80-96); MEAN PLT VOLUME 9.4 fl (7.5-11.1); PLATELET COUNT 182 10^3/uL (134-434); RBC 4.39 M/mm3 (4.00-5.60); RDW 15.6 % (11.9-15.9); WHITE BLOOD COUNT 7.4 K/mm3 (4.0-10.0)
[2022-01-12 07:29] LABS: ALBUMIN 2.6 g/dl (3.4-5.0); BLOOD UREA NITROGEN 20.4 mg/dL (7-18); CALCIUM 8.5 mg/dL (8.5-10.1); MAGNESIUM 2.1 mg/dL (1.8-2.4)
[2022-01-12 07:32] LABS: CREATININE 0.8 mg/dL (0.55-1.3); PHOSPHOROUS 3.5 mg/dL (2.5-4.9)
[2022-01-12 07:34] LABS: BILIRUBIN,TOTAL 0.4 mg/dL (0.2-1); TOT PROT 6.3 g/dl (6.4-8.2)
[2022-01-12] MEDS ORDERED: DEXTROSE 5%-WATER 100 ML IVPB ONE (09:42)
[2022-01-12] MEDS ORDERED: DOXYCYCLINE HYCLATE 100 MG VIAL ONE (09:42)
[2022-01-12] MEDS: DOXYCYCLINE INJECTION 100 MG in DEXTROSE 5%-WATER 100 ML IVPB SCH (10:05)
[2022-01-12] MEDS: POLYETHYLENE GLYCOL (HEALTHYLAX) 3350 17 GM PACKET PO SCH (10:05)
[2022-01-12] MEDS: ASPIRIN COATED 81 MG TABLET.EC PO SCH (10:07)
[2022-01-12] MEDS: NIFEdipine E.R 60 MG TABLET PO SCH (10:08)
[2022-01-12] MEDS: CLOPIDOGREL BISULFATE 75 MG TABLET (FP) PO SCH (10:08)
[2022-01-12] MEDS: NEBIVOLOL 5 MG TABLET (FP) PO SCH (10:08)
[2022-01-12] MEDS: ENALAPRIL MALEATE 10 MG TABLET PO SCH (10:08)
[2022-01-12] MEDS: MUPIROCIN 2% TOPICAL OINTMENT FOR DECOLONIZATION NS SCH (10:08)
[2022-01-12 13:57] LABS: ACTIVATED PTT 43.1 SECONDS (25.2-36.5); INR 1.16 (0.83-1.09); PROTHROMBIN TIME (PATIENT) 13.4 SEC (9.7-13.0)
[2022-01-12 16:19] VITALS: TEMP 97.6
[2022-01-12 16:21] VITALS: BP 152/72; PULSE 81
[2022-01-12] MEDS: HEPARIN - 25,000 UNIT in SODIUM CHLORIDE 495 ML IV SCH (16:59)
== END 2022-01-12 18:10 | disposition short-term general hospital (02) | DRG 280 ==
LOC: JER 21:52 → JERBED 01-08 00:02 → J4W 01-08 16:49 → JICU 01-11 05:57
PROVIDERS: ADMIT Internal Medicine; ATTEND Internal Medicine
DX: I21.A1 Myocardial infarction type 2 (principal); J18.9 Pneumonia, unspecified organism; J96.01 Acute respiratory failure with hypoxia; N17.9 Acute kidney failure, unspecified; J90 Pleural effusion, not elsewhere classified; I25.10 Atherosclerotic heart disease of native coronary artery without angina pectoris; E78.5 Hyperlipidemia, unspecified; E11.51 Type 2 diabetes mellitus with diabetic peripheral angiopathy without gangrene; G20 Parkinson's disease; I11.0 Hypertensive heart disease with heart failure; I50.9 Heart failure, unspecified; R77.8 Other specified abnormalities of plasma proteins; I77.9 Disorder of arteries and arterioles, unspecified; I44.7 Left bundle-branch block, unspecified; Z95.5 Presence of coronary angioplasty implant and graft; Z95.1 Presence of aortocoronary bypass graft
CPT/HCPCS: 0241U-QW; 36415; 36600; 71045-TC-FY; 71250-TC; 76775-TC; 80053; 80061; 81003; 82550; 82728; 82803; 82962; 83036; 83540; 83550; 83605; 83735; 83880; 84100; 84443; 84484; 85025; 85027; 85610; 85730; 86850; 86900; 86901; 87040; 87899; 93005; 93010; 93306-TC; 94010; 94640; 94660; 97116-GP; 97162-GP; 99285-25; C9803-CS; J1644; U0003; U0005

== ENCOUNTER 2022-03-03 05:57 | Inpatient (IN) | payer OTHER ==
[2022-03-03 08:20] LABS: ALBUMIN 3.6 g/dl (3.4-5.0); BLOOD UREA NITROGEN 15.6 mg/dL (7-18); CALCIUM 9.3 mg/dL (8.5-10.1)
[2022-03-03 08:23] LABS: CREATININE 0.7 mg/dL (0.55-1.3)
[2022-03-03 08:25] LABS: BILIRUBIN,TOTAL 0.3 mg/dL (0.2-1); TOT PROT 7.2 g/dl (6.4-8.2)
[2022-03-03 08:28] LABS: N-TERMINAL BNP 4172.2 pg/ml (5-125)
[2022-03-03 08:33] LABS: BASO % 0.4 % (0-2.0); EOS % 0.8 % (0-4.5); HEMATOCRIT 30.8 % (35.4-49); HEMOGLOBIN 9.9 GM/dL (11.7-16.9); LYMPH % 15.6 % (8-40); MCH 21.9 pg (25.7-33.7); MEAN CELL VOLUME 68.6 fl (80-96); MEAN PLT VOLUME 9.1 fl (7.5-11.1); MONO % 5.8 % (3.8-10.2); NEUT % 77.4 % (42.8-82.8); PLATELET COUNT 154 10^3/uL (134-434); RBC 4.49 M/mm3 (4.00-5.60); RDW 18.2 % (11.9-15.9); WHITE BLOOD COUNT 8.3 K/mm3 (4.0-10.0)
[2022-03-03] MEDS ORDERED: PIPERACILLIN/TAZOB 4.5 GM 4.5 GM in DEXTROSE 5%-WATER 100 ML IVPB ONE (08:39)
[2022-03-03] MEDS ORDERED: VANCOMYCIN 1,500 MG in DEXTROSE 5%-WATER - 250 ML IVPB ONE (08:39)
[2022-03-03] MEDS ORDERED: PIPERACILLIN/TAZOB 4.5 GM 4.5 GM/100 ML BAG IVPB ONE (08:43)
[2022-03-03] MEDS ORDERED: VANCOMYCIN PREMIX 1.5 GM 1,500 MG/300 ML BAG IVPB ONE (08:46)
[2022-03-03] MEDS ORDERED: ENALAPRIL MALEATE 10 MG TABLET PO SCH ×2 (09:30→22:00)
[2022-03-03] MEDS ORDERED: ENALAPRIL MALEATE 5 MG TABLET ONE (09:48)
[2022-03-03] MEDS ORDERED: ASPIRIN 81 MG CHEWABLE TABLETS PO ONE (10:05)
[2022-03-03] MEDS ORDERED: METOPROLOL TARTRATE 25 MG TABLET (FP) PO ONE (10:05)
[2022-03-03] MEDS ORDERED: hydrALAZINE HCL 10 MG TABLET PO ONE (10:05)
[2022-03-03] MEDS ORDERED: CLOPIDOGREL BISULFATE 75 MG TABLET (FP) PO ONE (10:06)
[2022-03-03] MEDS ORDERED: hydrALAZINE HCL 10 MG TABLET ONE (10:11)
[2022-03-03] MEDS ORDERED: ASPIRIN 81 MG CHEWABLE TABLETS ONE (10:11)
[2022-03-03] MEDS ORDERED: CLOPIDOGREL BISULFATE 75 MG TABLET (FP) ONE (10:11)
[2022-03-03] MEDS ORDERED: METOPROLOL TARTRATE 25 MG TABLET (FP) ONE (10:11)
[2022-03-03 10:41] LABS: ANISOCYTOSIS 3+; MACROCYTOSIS 0
[2022-03-03] MEDS ORDERED: ALBUTEROL SO4 2.5/IPRATROPIUM 0.5 INH SOL 3 ML VIAL.NEB. NEB PRN (11:25)
[2022-03-03] MEDS ORDERED: CLOPIDOGREL BISULFATE 75 MG TABLET (FP) PO SCH (11:30)
[2022-03-03] MEDS ORDERED: CARBIDOPA/LEVODOPA 25/100 TABLET (FP) ONE (11:34)
[2022-03-03] MEDS: CARBIDOPA/LEVODOPA 25/100 TABLET (FP) PO SCH ×2 (11:35→17:29)
[2022-03-03] MEDS: EZETIMIBE 10 MG TABLET (FP) PO SCH (16:07)
[2022-03-03] MEDS: CEFEPIME 2 GM in DEXTROSE 5%-WATER 100 ML IVPB SCH (16:07)
[2022-03-03 16:20] VITALS: BMI 23.0
[2022-03-03] MEDS: sitaGLIPtin PHOSPHATE 50 MG TABLET PO SCH (17:29)
[2022-03-03] MEDS: metFORMIN HCL 500 MG TABLET (FP) PO SCH (17:29)
[2022-03-03] MEDS: hydrALAZINE HCL 10 MG TABLET PO SCH ×2 (17:30→21:50)
[2022-03-03] MEDS: INSULIN (NOVOLOG) ASPART 100 UNITS/ML 10ML VIAL SQ SCH (17:30)
[2022-03-03] MEDS: NIFEdipine E.R 60 MG TABLET PO SCH (21:50)
[2022-03-03] MEDS: ATORVASTATIN CA 40 MG TABLET (FP) PO SCH (21:50)
[2022-03-03] MEDS: DOXYCYCLINE INJECTION 100 MG in DEXTROSE 5%-WATER 100 ML IVPB SCH (21:50)
[2022-03-03] MEDS ORDERED: PATIENT'S OWN MEDICATION (NON-FORMULARY) (Sitagliptin Phos/Metformin Hcl [Janumet Xr 50-1, PO SCH (22:00)
[2022-03-04] MEDS: PRIMIDONE 50 MG TABLET PO SCH ×2 (00:26→22:36)
[2022-03-04] MEDS: ENALAPRIL MALEATE 10 MG TABLET PO SCH ×3 (00:26→22:35)
[2022-03-04] MEDS: CEFEPIME 2 GM in DEXTROSE 5%-WATER 100 ML IVPB SCH ×3 (00:27→17:07)
[2022-03-04] MEDS: metFORMIN HCL 500 MG TABLET (FP) PO SCH ×2 (06:52→17:07)
[2022-03-04] MEDS: sitaGLIPtin PHOSPHATE 50 MG TABLET PO SCH ×2 (06:53→17:07)
[2022-03-04] MEDS: INSULIN (NOVOLOG) ASPART 100 UNITS/ML 10ML VIAL SQ SCH ×2 (06:53→16:52)
[2022-03-04] MEDS: CARBIDOPA/LEVODOPA 25/100 TABLET (FP) PO SCH ×3 (06:53→17:07)
[2022-03-04] MEDS: hydrALAZINE HCL 10 MG TABLET PO SCH ×3 (06:53→22:36)
[2022-03-04] MEDS: DOXYCYCLINE INJECTION 100 MG in DEXTROSE 5%-WATER 100 ML IVPB SCH ×2 (09:15→22:35)
[2022-03-04] MEDS: EZETIMIBE 10 MG TABLET (FP) PO SCH (09:15)
[2022-03-04] MEDS: ASPIRIN COATED 81 MG TABLET.EC PO SCH (09:26)
[2022-03-04] MEDS: FUROSEMIDE 40 MG TABLET (FP) PO SCH (09:26)
[2022-03-04] MEDS ORDERED: NIFEdipine E.R 60 MG TABLET PO SCH (10:00)
[2022-03-04] MEDS ORDERED: NEBIVOLOL 5 MG TABLET (FP) PO SCH (10:00)
[2022-03-04] MEDS: ATORVASTATIN CA 40 MG TABLET (FP) PO SCH (22:37)
[2022-03-04] MEDS: NIFEdipine E.R 60 MG TABLET PO SCH (22:37)
[2022-03-04] MEDS ORDERED: guaiFENesin/D-M SUGAR-FREE/ACLHOL-FREE 5 ML UNIT DOSE PO PRN (22:50)
[2022-03-04] MEDS ORDERED: ACETAMINOPHEN 325 MG TABLET (FP) PO ONE (22:50)
[2022-03-05] MEDS: CEFEPIME 2 GM in DEXTROSE 5%-WATER 100 ML IVPB SCH ×2 (01:30→09:48)
[2022-03-05] MEDS: hydrALAZINE HCL 10 MG TABLET PO SCH ×3 (06:03→23:58)
[2022-03-05] MEDS: sitaGLIPtin PHOSPHATE 50 MG TABLET PO SCH ×2 (06:03→18:15)
[2022-03-05] MEDS: metFORMIN HCL 500 MG TABLET (FP) PO SCH ×2 (06:03→18:15)
[2022-03-05] MEDS: INSULIN (NOVOLOG) ASPART 100 UNITS/ML 10ML VIAL SQ SCH ×2 (06:44→18:15)
[2022-03-05] MEDS: CARBIDOPA/LEVODOPA 25/100 TABLET (FP) PO SCH ×3 (06:45→18:14)
[2022-03-05] MEDS ORDERED: ACETAMINOPHEN 325 MG TABLET (FP) PO PRN (08:15)
[2022-03-05] MEDS: EZETIMIBE 10 MG TABLET (FP) PO SCH (09:47)
[2022-03-05] MEDS: FUROSEMIDE 40 MG TABLET (FP) PO SCH (09:47)
[2022-03-05] MEDS: CLOPIDOGREL BISULFATE 75 MG TABLET (FP) PO SCH (09:47)
[2022-03-05] MEDS: DOXYCYCLINE INJECTION 100 MG in DEXTROSE 5%-WATER 100 ML IVPB SCH ×2 (09:48→23:53)
[2022-03-05] MEDS: ASPIRIN COATED 81 MG TABLET.EC PO SCH (09:48)
[2022-03-05] MEDS: ENALAPRIL MALEATE 10 MG TABLET PO SCH (09:50)
[2022-03-05 13:00] LABS: BASO % 0.3 % (0-2.0); HEMATOCRIT 27.5 % (35.4-49); LYMPH % 10.3 % (8-40); MCHC 32.6 g/dl (32.0-35.9); MEAN CELL VOLUME 67.6 fl (80-96); MONO % 7.4 % (3.8-10.2); PLATELET COUNT 146 10^3/uL (134-434); RBC 4.07 M/mm3 (4.00-5.60); RDW 17.6 % (11.9-15.9); WHITE BLOOD COUNT 10.1 K/mm3 (4.0-10.0)
[2022-03-05 13:20] LABS: CALCIUM 8.5 mg/dL (8.5-10.1)
[2022-03-05 13:21] LABS: ALBUMIN 2.9 g/dl (3.4-5.0); BLOOD UREA NITROGEN 27.1 mg/dL (7-18)
[2022-03-05 13:24] LABS: CREATININE 1.2 mg/dL (0.55-1.3)
[2022-03-05 13:25] LABS: TOT PROT 6.5 g/dl (6.4-8.2)
[2022-03-05 13:26] LABS: BILIRUBIN,TOTAL 0.5 mg/dL (0.2-1)
[2022-03-05] MEDS: PIPERACILLIN/TAZOB 4.5 GM 4.5 GM in DEXTROSE 5%-WATER 100 ML IVPB SCH (18:17)
[2022-03-05] MEDS: ATORVASTATIN CA 40 MG TABLET (FP) PO SCH (23:57)
[2022-03-05] MEDS: NIFEdipine E.R 60 MG TABLET PO SCH (23:57)
[2022-03-05] MEDS: PRIMIDONE 50 MG TABLET PO SCH (23:58)
[2022-03-06] MEDS: ENALAPRIL MALEATE 10 MG TABLET PO SCH ×3 (00:08→23:34)
[2022-03-06] MEDS: PIPERACILLIN/TAZOB 4.5 GM 4.5 GM in DEXTROSE 5%-WATER 100 ML IVPB SCH ×3 (02:26→17:11)
[2022-03-06] MEDS ORDERED: MAG HYDROX/AL HYDROX/SIMETH 30 ML UNIT-DOSE CUP PO PRN (03:25)
[2022-03-06] MEDS: metFORMIN HCL 500 MG TABLET (FP) PO SCH ×2 (06:52→17:11)
[2022-03-06] MEDS: hydrALAZINE HCL 10 MG TABLET PO SCH ×3 (06:52→23:08)
[2022-03-06] MEDS: sitaGLIPtin PHOSPHATE 50 MG TABLET PO SCH ×2 (06:53→17:11)
[2022-03-06] MEDS: CARBIDOPA/LEVODOPA 25/100 TABLET (FP) PO SCH ×3 (06:53→17:11)
[2022-03-06] MEDS: INSULIN (NOVOLOG) ASPART 100 UNITS/ML 10ML VIAL SQ SCH ×2 (06:54→17:10)
[2022-03-06] MEDS: ASPIRIN COATED 81 MG TABLET.EC PO SCH (10:25)
[2022-03-06] MEDS: DOXYCYCLINE INJECTION 100 MG in DEXTROSE 5%-WATER 100 ML IVPB SCH ×2 (10:25→23:36)
[2022-03-06] MEDS: EZETIMIBE 10 MG TABLET (FP) PO SCH (10:25)
[2022-03-06] MEDS: FUROSEMIDE 40 MG TABLET (FP) PO SCH (10:26)
[2022-03-06] MEDS: FAMOTIDINE 20 MG/50 ML IVPB 20 MG/50 ML MG IVPB SCH ×2 (14:57→23:09)
[2022-03-06] MEDS: PRIMIDONE 50 MG TABLET PO SCH (23:08)
[2022-03-06] MEDS: NIFEdipine E.R 60 MG TABLET PO SCH (23:08)
[2022-03-06] MEDS: ATORVASTATIN CA 40 MG TABLET (FP) PO SCH (23:08)
[2022-03-07] MEDS: PIPERACILLIN/TAZOB 4.5 GM 4.5 GM in DEXTROSE 5%-WATER 100 ML IVPB SCH ×3 (02:13→17:38)
[2022-03-07] MEDS: metFORMIN HCL 500 MG TABLET (FP) PO SCH ×2 (06:51→16:36)
[2022-03-07] MEDS: CARBIDOPA/LEVODOPA 25/100 TABLET (FP) PO SCH ×3 (06:51→16:36)
[2022-03-07] MEDS: hydrALAZINE HCL 10 MG TABLET PO SCH ×3 (06:51→21:27)
[2022-03-07] MEDS: sitaGLIPtin PHOSPHATE 50 MG TABLET PO SCH ×2 (06:51→16:36)
[2022-03-07] MEDS: INSULIN (NOVOLOG) ASPART 100 UNITS/ML 10ML VIAL SQ SCH ×2 (06:52→17:38)
[2022-03-07] MEDS: FAMOTIDINE 20 MG/50 ML IVPB 20 MG/50 ML MG IVPB SCH ×2 (10:00→21:26)
[2022-03-07] MEDS: CLOPIDOGREL BISULFATE 75 MG TABLET (FP) PO SCH (10:05)
[2022-03-07] MEDS: ASPIRIN COATED 81 MG TABLET.EC PO SCH (10:05)
[2022-03-07] MEDS: FUROSEMIDE 40 MG TABLET (FP) PO SCH ×2 (10:05→16:36)
[2022-03-07] MEDS: DOXYCYCLINE INJECTION 100 MG in DEXTROSE 5%-WATER 100 ML IVPB SCH ×2 (10:05→21:27)
[2022-03-07] MEDS: ENALAPRIL MALEATE 10 MG TABLET PO SCH ×2 (10:05→21:26)
[2022-03-07] MEDS: EZETIMIBE 10 MG TABLET (FP) PO SCH (10:05)
[2022-03-07 10:47] LABS: ARTERIAL BLD GAS O2 SATURATION 92.9 % (95-98); ARTERIAL BLOOD GAS BASE EXCESS -2.9 mmol/L (-2-2); ARTERIAL BLOOD GAS PO2 61.8 mmHg (80-100); ARTERIAL BLOOD GAS pH 7.443 (7.350-7.450)
[2022-03-07 10:48] LABS: ALLENS TEST POSITIVE; PT'S TEMP 98.6
[2022-03-07 11:37] LABS: BLOOD UREA NITROGEN 32.8 mg/dL (7-18)
[2022-03-07 11:40] LABS: CREATININE 1.1 mg/dL (0.55-1.3)
[2022-03-07] MEDS: FLUTICASONE PROP 0.05% 16 GM NASAL SPRAY NS SCH ×2 (16:37→17:42)
[2022-03-07] MEDS: NIFEdipine E.R 60 MG TABLET PO SCH (21:26)
[2022-03-07] MEDS: PRIMIDONE 50 MG TABLET PO SCH (21:27)
[2022-03-07] MEDS: ATORVASTATIN CA 40 MG TABLET (FP) PO SCH (21:27)
[2022-03-08] MEDS: PIPERACILLIN/TAZOB 4.5 GM 4.5 GM in DEXTROSE 5%-WATER 100 ML IVPB SCH ×3 (02:55→18:06)
[2022-03-08] MEDS: hydrALAZINE HCL 10 MG TABLET PO SCH ×3 (06:22→22:53)
[2022-03-08] MEDS: FUROSEMIDE 40 MG TABLET (FP) PO SCH ×2 (06:23→13:17)
[2022-03-08] MEDS: metFORMIN HCL 500 MG TABLET (FP) PO SCH ×2 (06:23→16:46)
[2022-03-08] MEDS: CARBIDOPA/LEVODOPA 25/100 TABLET (FP) PO SCH ×3 (06:23→16:46)
[2022-03-08] MEDS: sitaGLIPtin PHOSPHATE 50 MG TABLET PO SCH ×2 (06:26→16:46)
[2022-03-08] MEDS: INSULIN (NOVOLOG) ASPART 100 UNITS/ML 10ML VIAL SQ SCH ×2 (06:26→16:49)
[2022-03-08] MEDS: FLUTICASONE PROP 0.05% 16 GM NASAL SPRAY NS SCH (09:56)
[2022-03-08] MEDS: ASPIRIN COATED 81 MG TABLET.EC PO SCH (09:57)
[2022-03-08] MEDS: EZETIMIBE 10 MG TABLET (FP) PO SCH (09:57)
[2022-03-08] MEDS: ENALAPRIL MALEATE 10 MG TABLET PO SCH ×3 (09:57→22:54)
[2022-03-08] MEDS: FAMOTIDINE 20 MG/50 ML IVPB 20 MG/50 ML MG IVPB SCH ×2 (09:57→22:57)
[2022-03-08] MEDS: DOXYCYCLINE INJECTION 100 MG in DEXTROSE 5%-WATER 100 ML IVPB SCH ×2 (09:58→23:40)
[2022-03-08] MEDS: PRIMIDONE 50 MG TABLET PO SCH (22:51)
[2022-03-08] MEDS: ATORVASTATIN CA 40 MG TABLET (FP) PO SCH (22:55)
[2022-03-08] MEDS: NIFEdipine E.R 60 MG TABLET PO SCH (22:55)
[2022-03-09] MEDS: PIPERACILLIN/TAZOB 4.5 GM 4.5 GM in DEXTROSE 5%-WATER 100 ML IVPB SCH ×2 (03:22→10:34)
[2022-03-09] MEDS: hydrALAZINE HCL 10 MG TABLET PO SCH ×2 (06:10→14:08)
[2022-03-09] MEDS: FUROSEMIDE 40 MG TABLET (FP) PO SCH ×2 (06:10→14:08)
[2022-03-09] MEDS: INSULIN (NOVOLOG) ASPART 100 UNITS/ML 10ML VIAL SQ SCH (06:11)
[2022-03-09] MEDS: FLUTICASONE PROP 0.05% 16 GM NASAL SPRAY NS SCH (10:28)
[2022-03-09] MEDS: ASPIRIN COATED 81 MG TABLET.EC PO SCH (10:28)
[2022-03-09] MEDS: CLOPIDOGREL BISULFATE 75 MG TABLET (FP) PO SCH (10:29)
[2022-03-09] MEDS: FAMOTIDINE 20 MG/50 ML IVPB 20 MG/50 ML MG IVPB SCH (10:29)
[2022-03-09] MEDS: ENALAPRIL MALEATE 10 MG TABLET PO SCH (10:30)
[2022-03-09] MEDS: DOXYCYCLINE INJECTION 100 MG in DEXTROSE 5%-WATER 100 ML IVPB SCH (10:31)
[2022-03-09] MEDS: EZETIMIBE 10 MG TABLET (FP) PO SCH (10:33)
[2022-03-09] MEDS: CARBIDOPA/LEVODOPA 25/100 TABLET (FP) PO SCH ×2 (11:47→17:25)
[2022-03-09 15:42] VITALS: BP 173/59; PULSE 84; RESP 20; TEMP 98.7
[2022-03-09] MEDS: sitaGLIPtin PHOSPHATE 50 MG TABLET PO SCH (17:25)
[2022-03-09] MEDS: metFORMIN HCL 500 MG TABLET (FP) PO SCH (17:25)
== END 2022-03-09 18:00 | disposition home or self-care (01) | DRG 193 ==
LOC: JER 05:57 → JERBED 09:18 → J8W 11:53 → OBSVTOIN 14:29
PROVIDERS: ADMIT Internal Medicine; ATTEND Internal Medicine
DX: J18.9 Pneumonia, unspecified organism (principal); I50.33 Acute on chronic diastolic (congestive) heart failure; N17.9 Acute kidney failure, unspecified; J81.1 Chronic pulmonary edema; E87.1 Hypo-osmolality and hyponatremia; I11.0 Hypertensive heart disease with heart failure; G20 Parkinson's disease; I73.9 Peripheral vascular disease, unspecified; E11.9 Type 2 diabetes mellitus without complications; D64.9 Anemia, unspecified; I25.10 Atherosclerotic heart disease of native coronary artery without angina pectoris; E78.5 Hyperlipidemia, unspecified; Z95.1 Presence of aortocoronary bypass graft; Z98.61 Coronary angioplasty status; I27.20 Pulmonary hypertension, unspecified
CPT/HCPCS: 0241U-QW; 36415; 36600; 71045-TC-FY; 71250-TC; 80048; 80053; 82803; 82962; 83880; 84484; 85025; 87070; 87081; 87205; 87633; 87899; 94640; 94761; 99285-25; G0378

== ENCOUNTER 2022-05-16 09:01 | Observation (INO) | payer OTHER ==
[2022-05-16] MEDS ORDERED: ACETAMINOPHEN 1000 MG/100 ML BAG IVPB ONE (09:58)
[2022-05-16 10:38] LABS: URINE APPEARANCE CLEAR; URINE BILIRUBIN NEGATIVE (NEGATIVE); URINE COLOR YELLOW; URINE GLUCOSE (UA) NEGATIVE (NEGATIVE); URINE KETONE NEGATIVE (NEGATIVE); URINE LEUK ESTERASE NEGATIVE (NEGATIVE); URINE NITRITE NEGATIVE (NEGATIVE); URINE PROTEIN TRACE (NEGATIVE); URINE UROBILINOGEN 0.2 mg/dL (0.2-1.0)
[2022-05-16 10:39] LABS: BASO % 0.3 % (0-2.0); EOS % 0.1 % (0-4.5); HEMATOCRIT 30.3 % (35.4-49); HEMOGLOBIN 9.7 GM/dL (11.7-16.9); LYMPH % 6.1 % (8-40); MCH 21.1 pg (25.7-33.7); MCHC 31.9 g/dl (32.0-35.9); MEAN CELL VOLUME 66.2 fl (80-96); MONO % 5.9 % (3.8-10.2); NEUT % 87.6 % (42.8-82.8); PLATELET COUNT 172 10^3/uL (134-434); RBC 4.58 M/mm3 (4.00-5.60); RDW 16.9 % (11.9-15.9); WHITE BLOOD COUNT 10.7 K/mm3 (4.0-10.0)
[2022-05-16 11:00] LABS: CALCIUM 9.3 mg/dL (8.5-10.1)
[2022-05-16 11:01] LABS: ALBUMIN 3.4 g/dl (3.4-5.0); BLOOD UREA NITROGEN 11.2 mg/dL (7-18)
[2022-05-16 11:04] LABS: CREATININE 0.8 mg/dL (0.55-1.3)
[2022-05-16 11:05] LABS: BILIRUBIN,TOTAL 0.5 mg/dL (0.2-1)
[2022-05-16] MEDS ORDERED: ACETAMINOPHEN INJECTION 100 ML IVPB ONE (11:15)
[2022-05-16] MEDS ORDERED: ACETAMINOPHEN 325 MG TABLET (FP) PO PRN (13:31)
[2022-05-16] MEDS ORDERED: FUROSEMIDE 40 MG TABLET (FP) ONE (14:09)
[2022-05-16] MEDS: CARBIDOPA/LEVODOPA 25/100 TABLET (FP) PO SCH ×2 (14:14→21:54)
[2022-05-16] MEDS: FUROSEMIDE 40 MG TABLET (FP) PO SCH (14:14)
[2022-05-16] MEDS: hydrALAZINE HCL 10 MG TABLET PO SCH ×2 (14:14→21:54)
[2022-05-16] MEDS: INSULIN SLIDING SCALE (NOVOLOG) 1 VIAL SQ SCH ×2 (18:58→21:54)
[2022-05-16] MEDS ORDERED: ATORVASTATIN CA 40 MG TABLET (FP) ONE (21:34)
[2022-05-16] MEDS ORDERED: hydrALAZINE HCL 10 MG TABLET ONE (21:34)
[2022-05-16] MEDS ORDERED: CARBIDOPA/LEVODOPA 25/100 TABLET (FP) ONE (21:35)
[2022-05-16] MEDS ORDERED: PRIMIDONE 50 MG TABLET PO SCH (22:00)
[2022-05-16] MEDS ORDERED: ATORVASTATIN CA 40 MG TABLET (FP) PO SCH (22:00)
[2022-05-16] MEDS ORDERED: PATIENT'S OWN MEDICATION (NON-FORMULARY) (Sitagliptin Phos/Metformin Hcl [Janumet Xr 50-1, PO SCH (22:00)
[2022-05-16] MEDS ORDERED: INSULIN SLIDING SCALE (NOVOLOG) 1 VIAL SQ SCH (22:00)
[2022-05-17] MEDS ORDERED: FUROSEMIDE 40 MG TABLET (FP) ONE (04:49)
[2022-05-17] MEDS ORDERED: hydrALAZINE HCL 10 MG TABLET ONE (04:49)
[2022-05-17] MEDS ORDERED: CARBIDOPA/LEVODOPA 25/100 TABLET (FP) ONE (04:49)
[2022-05-17] MEDS: FUROSEMIDE 40 MG TABLET (FP) PO SCH (06:05)
[2022-05-17] MEDS: CARBIDOPA/LEVODOPA 25/100 TABLET (FP) PO SCH (06:05)
[2022-05-17 06:11] VITALS: TEMP 98.2
[2022-05-17] MEDS: hydrALAZINE HCL 10 MG TABLET PO SCH (06:48)
[2022-05-17] MEDS ORDERED: sitaGLIPtin PHOSPHATE 50 MG TABLET PO SCH (07:00)
[2022-05-17] MEDS ORDERED: metFORMIN HCL 500 MG TABLET (FP) ONE (07:28)
[2022-05-17] MEDS ORDERED: sitaGLIPtin PHOSPHATE 50 MG TABLET ONE (07:28)
[2022-05-17] MEDS: INSULIN SLIDING SCALE (NOVOLOG) 1 VIAL SQ SCH ×2 (07:44→11:55)
[2022-05-17 08:44] LABS: BASO % 0.7 % (0-2.0); HEMATOCRIT 27.2 % (35.4-49); HEMOGLOBIN 8.7 GM/dL (11.7-16.9); LYMPH % 15.8 % (8-40); MCH 21.1 pg (25.7-33.7); MEAN PLT VOLUME 9.9 fl (7.5-11.1); MONO % 6.2 % (3.8-10.2); NEUT % 76.3 % (42.8-82.8); PLATELET COUNT 157 10^3/uL (134-434); RBC 4.12 M/mm3 (4.00-5.60); RDW 17.3 % (11.9-15.9); WHITE BLOOD COUNT 6.8 K/mm3 (4.0-10.0)
[2022-05-17 08:56] VITALS: RESP 18
[2022-05-17] MEDS ORDERED: ASPIRIN COATED 81 MG TABLET.EC ONE (08:59)
[2022-05-17] MEDS ORDERED: CLOPIDOGREL BISULFATE 75 MG TABLET (FP) ONE (08:59)
[2022-05-17] MEDS ORDERED: NIFEdipine E.R 60 MG TABLET ONE (09:00)
[2022-05-17 09:13] LABS: CHLORIDE 99 mmol/L (98-107); SODIUM 138 mmol/L (136-145)
[2022-05-17 09:17] LABS: ALBUMIN 2.9 g/dl (3.4-5.0); ANION GAP 9 MMOL/L (8-16); CALCIUM 8.4 mg/dL (8.5-10.1); CO2 30 mmol/L (21-32); GLUCOSE,RANDOM 192 mg/dL (74-106)
[2022-05-17 09:20] LABS: CREATININE 0.7 mg/dL (0.55-1.3)
[2022-05-17 09:21] LABS: BILIRUBIN,TOTAL 0.6 mg/dL (0.2-1); SGOT/AST 13 U/L (15-37)
[2022-05-17 09:24] LABS: TOT PROT 6.3 g/dl (6.4-8.2)
[2022-05-17 09:25] LABS: ALK PHOS 50 U/L (45-117)
[2022-05-17] MEDS ORDERED: NIFEdipine E.R 60 MG TABLET PO SCH (10:00)
[2022-05-17] MEDS ORDERED: ASPIRIN COATED 81 MG TABLET.EC PO SCH (10:00)
[2022-05-17] MEDS ORDERED: CLOPIDOGREL BISULFATE 75 MG TABLET (FP) PO SCH (10:00)
[2022-05-17 10:22] LABS: SGPT/ALT < 6 U/L (13-61)
[2022-05-17 12:18] VITALS: BP 139/57; PULSE 87; BMI 22.0
== END 2022-05-17 13:00 | disposition home or self-care (01) ==
LOC: JER 09:01 → JERBED 11:24 → UNDOADMOB 11:24 → INTOOBSV 11:24 → JERBED 13:31 → J8W 05-17 09:59
PROVIDERS: ADMIT Internal Medicine; ATTEND Internal Medicine
PROC: 3E033NZ Introduction of Analgesics, Hypnotics, Sedatives into Peripheral Vein, Percutaneous Approach (ICD-10-PCS; principal; 2022-05-16)
PROC: 3E013VG Introduction of Insulin into Subcutaneous Tissue, Percutaneous Approach (ICD-10-PCS; 2022-05-16)
DX: I25.10 Atherosclerotic heart disease of native coronary artery without angina pectoris (principal); I11.9 Hypertensive heart disease without heart failure; R77.8 Other specified abnormalities of plasma proteins; G20 Parkinson's disease; R09.02 Hypoxemia; E11.9 Type 2 diabetes mellitus without complications; E78.5 Hyperlipidemia, unspecified; I65.29 Occlusion and stenosis of unspecified carotid artery; Z95.1 Presence of aortocoronary bypass graft; Z95.5 Presence of coronary angioplasty implant and graft; Z87.891 Personal history of nicotine dependence
CPT/HCPCS: 0241U-QW; 36415; 71046-TC-FY; 80053; 81003; 82962; 84484; 85025; 87040; 87086; 93005; 93010; 96372; 96374; 99291; G0378

== ENCOUNTER 2023-04-08 12:54 | Emergency (ER) | payer MEDICARE, OTHER ==
[2023-04-08 13:01] VITALS: BP 132/66; PULSE 72; RESP 20; TEMP 100.4; BMI 22.3
== END 2023-04-08 14:15 | disposition left against medical advice (07) ==
LOC: JER 12:54
DX: R05.9 Cough, unspecified (principal); R06.02 Shortness of breath; Z53.21 Procedure and treatment not carried out due to patient leaving prior to being seen by health care provider
CPT/HCPCS: 99282-25

== ENCOUNTER 2023-04-08 19:18 | Emergency (ER) | payer MEDICARE ==
[2023-04-08 19:25] VITALS: BP 164/60; PULSE 72; RESP 18; TEMP 98.9; BMI 22.3
== END 2023-04-08 21:11 | disposition home or self-care (01) ==
LOC: JER 19:18
DX: R05.9 Cough, unspecified (principal); R50.9 Fever, unspecified; Z20.822 Contact with and (suspected) exposure to COVID-19
CPT/HCPCS: 0241U-QW; 71046-TC-FY; 99284-25

== ENCOUNTER 2024-03-04 20:19 | Inpatient (IN) | payer MEDICARE, OTHER ==
[2024-03-04 21:22] LABS: BASO % 0.6 % (0-2.0); HEMATOCRIT 30.1 % (35.4-49); HEMOGLOBIN 9.8 GM/dL (11.7-16.9); LYMPH % 18.1 % (8-40); MCH 20.3 pg (25.7-33.7); MCHC 32.4 g/dl (32.0-35.9); MEAN CELL VOLUME 62.5 fl (80-96); MEAN PLT VOLUME 9.2 fl (7.5-11.1); MONO % 9.6 % (3.8-10.2); NEUT % 71.7 % (42.8-82.8); PLATELET COUNT 137 10^3/uL (134-434); RBC 4.82 M/mm3 (4.00-5.60); RDW 20.6 % (11.9-15.9); WHITE BLOOD COUNT 8.5 K/mm3 (4.0-10.0)
[2024-03-04 21:26] LABS: INR 1.19 (0.83-1.09); PROTHROMBIN TIME (PATIENT) 13.4 SEC (9.7-13.0)
[2024-03-04 21:29] LABS: ACTIVATED PTT 33.3 SECONDS (25.2-36.5)
[2024-03-04 21:41] LABS: POTASSIUM 3.9 mmol/L (3.5-5.1)
[2024-03-04 21:43] LABS: CALCIUM 8.8 mg/dL (8.5-10.1)
[2024-03-04 21:44] LABS: ALBUMIN 3.3 g/dl (3.4-5.0); BLOOD UREA NITROGEN 17.6 mg/dL (7-18); MAGNESIUM 1.6 mg/dL (1.8-2.4)
[2024-03-04 21:47] LABS: CREATININE 0.9 mg/dL (0.55-1.3); PHOSPHOROUS 2.6 mg/dL (2.5-4.9)
[2024-03-04 21:48] LABS: BILIRUBIN,TOTAL 0.3 mg/dL (0.2-1); TOT PROT 6.8 g/dl (6.4-8.2)
[2024-03-04 21:49] LABS: N-TERMINAL BNP 4052.1 pg/ml (5-125)
[2024-03-04 21:57] LABS: PH,URINE 5.5 (5.0-8.0); URINE APPEARANCE CLEAR; URINE BILIRUBIN NEGATIVE (NEGATIVE); URINE COLOR YELLOW; URINE GLUCOSE (UA) NEGATIVE (NEGATIVE); URINE KETONE NEGATIVE (NEGATIVE); URINE LEUK ESTERASE NEGATIVE (NEGATIVE); URINE NITRITE NEGATIVE (NEGATIVE); URINE PROTEIN 2+ (NEGATIVE); URINE UROBILINOGEN 0.2 mg/dL (0.2-1.0)
[2024-03-04 22:21] LABS: EPI CELLS 5.1 /uL (0-25.1); HYALINE CASTS 0 /uL (0-3.1); URINE RBC 3.9 /uL (0-23.9); URINE WBC 4.5 /uL (0-25.8)
[2024-03-04 22:22] LABS: URINE BACTERIA 0.9 /uL (0-1359)
[2024-03-04] MEDS ORDERED: MAGNESIUM SULFATE IN WATER 2 GM/50 ML IVPB IVPB ONE (22:27)
[2024-03-04 22:31] LABS: ANISOCYTOSIS 2+; MACROCYTOSIS 0
[2024-03-04] MEDS: MAGNESIUM SULFATE IN WATER 2 GM/50 ML IVPB IVPB ONE (23:55)
[2024-03-05] MEDS ORDERED: hydrALAZINE HCL 10 MG TABLET ONE (04:35)
[2024-03-05] MEDS: hydrALAZINE HCL 10 MG TABLET PO ONE (04:55)
[2024-03-05] MEDS: hydrALAZINE HCL 10 MG TABLET PO SCH (06:11)
[2024-03-05] MEDS ORDERED: FUROSEMIDE 40 MG TABLET (FP) ONE (06:13)
[2024-03-05] MEDS: FUROSEMIDE 40 MG TABLET (FP) PO SCH (06:17)
[2024-03-05 07:44] LABS: BASO % 0.4 % (0-2.0); HEMATOCRIT 32.5 % (35.4-49); HEMOGLOBIN 10.4 GM/dL (11.7-16.9); LYMPH % 13.2 % (8-40); MCH 20.2 pg (25.7-33.7); MEAN CELL VOLUME 63.2 fl (80-96); MEAN PLT VOLUME 8.4 fl (7.5-11.1); MONO % 6.4 % (3.8-10.2); PLATELET COUNT 161 10^3/uL (134-434); RBC 5.14 M/mm3 (4.00-5.60); RDW 20.9 % (11.9-15.9); WHITE BLOOD COUNT 9.5 K/mm3 (4.0-10.0)
[2024-03-05 07:52] LABS: POTASSIUM 4.3 mmol/L (3.5-5.1)
[2024-03-05 07:54] LABS: ALBUMIN 3.4 g/dl (3.4-5.0); CALCIUM 8.7 mg/dL (8.5-10.1)
[2024-03-05 07:55] LABS: BLOOD UREA NITROGEN 12.8 mg/dL (7-18); MAGNESIUM 2.2 mg/dL (1.8-2.4)
[2024-03-05 07:58] LABS: CREATININE 0.8 mg/dL (0.55-1.3); PHOSPHOROUS 2.5 mg/dL (2.5-4.9)
[2024-03-05 07:59] LABS: BILIRUBIN,TOTAL 0.3 mg/dL (0.2-1)
[2024-03-05] MEDS: INSULIN ASPART SLIDING SCALE (NOVOLOG) 1 VIAL SQ SCH (08:55)
[2024-03-05] MEDS: ASPIRIN COATED 81 MG TABLET.EC PO SCH (09:18)
[2024-03-05] MEDS: NIFEdipine E.R 60 MG TABLET PO SCH (09:18)
[2024-03-05] MEDS: RIVAROXABAN 2.5 MG TABLET PO SCH (09:18)
[2024-03-05] MEDS ORDERED: ACETAMINOPHEN INJECTION 100 ML IVPB ONE ×2 (17:39→23:00)
[2024-03-05] MEDS: ACETAMINOPHEN 1000 MG/100 ML BAG IVPB PRN (17:51)
[2024-03-05] MEDS ORDERED: hydrALAZINE HCL 25 MG TABLET (FP) ONE ×2 (17:57→23:05)
[2024-03-05] MEDS ORDERED: PIPERACILLIN/TAZOB 3.375 GM 3.375 GM/50 ML BAG IVPB ONE (17:59)
[2024-03-05] MEDS: hydrALAZINE HCL 25 MG TABLET (FP) PO SCH (18:08)
[2024-03-05] MEDS: PIPERACILLIN/TAZOB 3.375 GM 3.375 GM in DEXTROSE 5%-WATER - 50 ML IVPB SCH (18:15)
[2024-03-05] MEDS ORDERED: IBUPROFEN 600 MG TABLET (FP) PO ONE (22:29)
[2024-03-05] MEDS ORDERED: ROSUVASTATIN CA 20 MG TABLET ONE (23:06)
[2024-03-05] MEDS: ROSUVASTATIN CA 40 MG TABLET PO SCH (23:15)
[2024-03-06] MEDS: PRIMIDONE 50 MG TABLET PO SCH (01:03)
[2024-03-06] MEDS: IBUPROFEN 600 MG TABLET (FP) PO ONE ×2 (01:03→16:43)
[2024-03-06] MEDS: SODIUM CHLORIDE 0.45% 1,000 ML IV SCH (16:43)
[2024-03-06] MEDS: AZITHROMYCIN IVPB 500 MG/250 ML BAG IVPB ONE (16:44)
[2024-03-06] MEDS: AZITHROMYCIN IVPB 500 MG/250 ML BAG IVPB SCH (16:44)
[2024-03-06] MEDS: VANCOMYCIN/WATER FOR INJ (PEG) 1,000 MG/200 ML BAG IVPB ONE (16:44)
[2024-03-06] MEDS: PIPERACILLIN/TAZOB 3.375 GM 3.375 GM in DEXTROSE 5%-WATER - 50 ML IVPB SCH (18:12)
[2024-03-06] MEDS: ROSUVASTATIN CA 20 MG TABLET PO SCH (21:38)
[2024-03-07] MEDS: ACETAMINOPHEN 325 MG TABLET (FP) PO ONE (03:10)
[2024-03-07] MEDS: ACETAMINOPHEN 1000 MG/100 ML BAG IVPB ONE ×2 (06:16→11:44)
[2024-03-07] MEDS: ACETAMINOPHEN 1000 MG/100 ML BAG IVPB SCH ×2 (11:48→16:12)
[2024-03-07 12:07] LABS: POTASSIUM 3.9 mmol/L (3.5-5.1)
[2024-03-07 12:09] LABS: CALCIUM 8.1 mg/dL (8.5-10.1)
[2024-03-07 12:10] LABS: BLOOD UREA NITROGEN 20.5 mg/dL (7-18)
[2024-03-07 12:13] LABS: CREATININE 1.2 mg/dL (0.55-1.3)
[2024-03-07] MEDS ORDERED: hydrALAZINE HCL 25 MG TABLET (FP) PO SCH (12:13)
[2024-03-07 12:14] LABS: BILIRUBIN,TOTAL 0.4 mg/dL (0.2-1); TOT PROT 6.4 g/dl (6.4-8.2)
[2024-03-07] MEDS: DOXYCYCLINE INJECTION 100 MG in DEXTROSE 5%-WATER 100 ML IVPB SCH ×2 (12:23→12:48)
[2024-03-07] MEDS: hydrALAZINE HCL 25 MG TABLET (FP) PO SCH (14:26)
[2024-03-07] MEDS: SODIUM CHLORIDE 0.45% 1,000 ML IV SCH (14:26)
[2024-03-07 15:14] VITALS: BMI 22.5
[2024-03-07] MEDS: ACETAMINOPHEN 1000 MG/100 ML BAG IVPB STA (16:19)
[2024-03-08 01:58] LABS: HEMATOCRIT 29.8 % (35.4-49); HEMOGLOBIN 9.5 GM/dL (11.7-16.9); MCH 20.3 pg (25.7-33.7); MEAN CELL VOLUME 63.4 fl (80-96); RBC 4.71 M/mm3 (4.00-5.60); RDW 21.6 % (11.9-15.9); WHITE BLOOD COUNT 19.5 K/mm3 (4.0-10.0)
[2024-03-08 04:46] LABS: ANISOCYTOSIS 3+; MACROCYTOSIS 0; OVALOCYTE 1+; ROULEAU 2+
[2024-03-08 04:54] LABS: MEAN PLT VOLUME 8.8 fl (7.5-11.1); PLATELET COUNT 210 10^3/uL (134-434)
[2024-03-08] MEDS ORDERED: NOREPINEPHRINE BITARTRATE 4 MG/4 ML ML IV ONE (07:00)
[2024-03-08] MEDS: DOPAMINE 400 MG/D5W - 400,000 MCG/250 ML INFUS.BAG IVPB SCH (07:00)
[2024-03-08] MEDS: LACTATED RINGERS SOLUTION 1000 ML INFUS.BAG IV ONE (07:06)
[2024-03-08] MEDS ORDERED: EPINEPHrine 1:10,000 (P-F SYR) 1 MG/10 ML DISP.SYRIN ONE (07:10)
[2024-03-08] MEDS: NOREPINEPHRINE BITARTRATE 4,000 MCG in DEXTROSE 5%-WATER - 496 ML IV SCH (07:10)
[2024-03-08] MEDS ORDERED: VASopressin 20 UNITS/ML VIAL IV ONE (07:23)
[2024-03-08] MEDS ORDERED: EPINEPHrine 1:1,000 1,000 MCG in DEXTROSE 5%-WATER - 249 ML IVPB SCH (07:30)
[2024-03-08] MEDS ORDERED: VASopressin 40 UNITS/100 ML BAG IV SCH (07:30)
[2024-03-08] MEDS ORDERED: PHENYLEPHRINE NS PREMIX 50,000 MCG/500 ML BAG CVP SCH (07:30)
[2024-03-08] MEDS ORDERED: EPINEPHrine/PF 1 MG/1 ML (1:1,000) AMPULE ONE (07:33)
[2024-03-08] MEDS ORDERED: CALCIUM GLUCONATE 10% - 1,000 MG/10 ML VIAL ONE (07:38)
[2024-03-08] MEDS ORDERED: CALCIUM CHLORIDE 1 GM/10 ML *DISP.SYRIN ONE (07:39)
[2024-03-08] MEDS ORDERED: SODIUM BICARBONATE 8.4% 50 MEQ/50 ML DISP.SYRIN ONE (07:43)
[2024-03-08 08:46] VITALS: TEMP 98.6
[2024-03-08 10:00] VITALS: RESP 26
[2024-03-08] MEDS ORDERED: CEFEPIME HCL 2 GM VIAL (RESTRICTED TO ID) IVPB SCH (10:00)
[2024-03-08] MEDS ORDERED: CEFEPIME 2 GM in DEXTROSE 5%-WATER 100 ML IVPB SCH (10:00)
[2024-03-08 10:01] VITALS: BP 76/52; PULSE 30
[2024-03-14 14:09] LABS: WEST NILE VIRUS AB SERUM,IGM Positive (Negative)
== END 2024-03-08 07:48 | disposition expired | DRG 864 ==
LOC: JER 20:19 → JERBED 23:44 → J4W 03-05 23:51 → OBSVTOIN 03-07 12:22 → JICU 03-08 06:39
PROVIDERS: ADMIT Internal Medicine; ATTEND Internal Medicine
PROC: 5A1935Z Respiratory Ventilation, Less than 24 Consecutive Hours (ICD-10-PCS; principal; 2024-03-08)
PROC: 0BH17EZ Insertion of Endotracheal Airway into Trachea, Via Natural or Artificial Opening (ICD-10-PCS; 2024-03-08)
PROC: 5A12012 Performance of Cardiac Output, Single, Manual (ICD-10-PCS; 2024-03-08)
DX: R50.9 Fever, unspecified (principal); J96.90 Respiratory failure, unspecified, unspecified whether with hypoxia or hypercapnia; G93.41 Metabolic encephalopathy; E87.1 Hypo-osmolality and hyponatremia; I50.32 Chronic diastolic (congestive) heart failure; N17.9 Acute kidney failure, unspecified; I46.9 Cardiac arrest, cause unspecified; I11.0 Hypertensive heart disease with heart failure; I25.10 Atherosclerotic heart disease of native coronary artery without angina pectoris; I73.9 Peripheral vascular disease, unspecified; G20.A1 Parkinson's disease without dyskinesia, without mention of fluctuations; E11.9 Type 2 diabetes mellitus without complications; Z95.5 Presence of coronary angioplasty implant and graft; Z95.1 Presence of aortocoronary bypass graft; E78.5 Hyperlipidemia, unspecified
CPT/HCPCS: 0241U-QW; 36415; 70450-TC; 70496-TC; 70498-TC; 70544-TC; 70547-TC; 70551-TC; 71045-TC-FY; 71250-TC; 74176-TC; 80053; 80061; 81003; 82533; 82550; 82553; 82607; 82962; 83036; 83605; 83735; 83880; 84100; 84436; 84443; 84484; 85025; 85610; 85651; 85730; 86140; 86618; 86788; 86789; 86850; 86900; 86901; 87040; 87086; 87633; 87899; 93005; 93010; 94002; 97116-GP; 97162-GP; 99285-25; G0378; J0131